=== PATIENT | female | born 1960 | race Caucasian/White ===

== ENCOUNTER 2018-03-27 18:55 | Inpatient (IN) | payer OTHER ==
[2018-03-27] MEDS ORDERED: LEVOFLOXACIN 750MG-D5W PMX 750 MG in DEXTROSE/WATER 1 150ML.BAG IVPB STA (19:34)
[2018-03-27] MEDS ORDERED: IPRATROPIUM-ALBUTEROL 3 ML NEB INHALATION STA (19:34)
[2018-03-27] MEDS ORDERED: ASPIRIN 81 MG PO STA (19:38)
--- NOTE | 2018-03-27 19:44 | ED ---
General Adult HPI - General Chief complaint: Upper Respiratory Infection Stated complaint: Cough Time Seen by Provider: 03/27/18 19:02 Source: patient, EMS, RN notes reviewed, old records reviewed (From [facility]) Mode of arrival: EMS Limitations: no limitations - History of Present Illness Initial comments: Patient is a pleasant 57-year-old female presenting to the emergency Department as a transfer from [facility]. Patient states she has had cough for the past several days. Patient states she has had some difficulty in breathing over the past couple of days. Cough has some yellow sputum. Patient has had some nausea. Patient denies ever having abdominal discomfort. Patient denies ever having chest discomfort. Patient states she has been fatigued. Patient is unaware of any fevers recently. Patient was started on heparin prior to transfer. Patient was transferred for level of care and cardiac evaluation. Patient did have elevated troponin. D-dimer was done at 0.43. - Related Data Home Medications Medication Instructions Recorded Confirmed Ascorbic Acid [Vitamin C] 1,000 mg PO DAILY 03/27/18 03/27/18 Calcium/Magnesium/Zinc 1 tab PO DAILY 03/27/18 03/27/18 [Bhwxdsi-Lvtnopbtz-Cjil Tablet] Cyanocobalamin (Vitamin B-12) 1,000 mcg PO DAILY 03/27/18 03/27/18 [Vitamin B-12] Hydrochlorothiazide [Hydrodiuril] 25 mg PO DAILY 03/27/18 03/27/18 Multivitamins, Thera [Multivitamin 1 tab PO DAILY 03/27/18 03/27/18 (formulary)] Otc Hot Flash Tab(Unknown) 1 tab PO DAILY 03/27/18 03/27/18 Ranitidine HCl [Zantac] 75 mg PO AC-BID 03/27/18 03/27/18 Vitamin B Complex 1 cap PO DAILY 03/27/18 03/27/18 Allergies Allergy/AdvReac Type Severity Reaction Status Date / Time No Known Allergies Allergy Verified 03/27/18 19:41 Review of Systems ROS Statement: Those systems with pertinent positive or pertinent negative responses have been documented in the HPI. ROS Other: All systems not noted in ROS Statement are negative. Constitutional: Reports: chills. Denies: fever Eyes: Denies: eye pain ENT: Denies: ear pain Respiratory: Reports: cough, dyspnea Cardiovascular: Denies: chest pain Endocrine: Reports: fatigue Gastrointestinal: Reports: nausea. Denies: abdominal pain, vomiting, diarrhea, constipation Genitourinary: Denies: dysuria Musculoskeletal: Denies: back pain Skin: Denies: rash Neurological: Denies: headache Past Medical History Past Medical History: Hypertension History of Any Multi-Drug Resistant Organisms: None Reported Past Surgical History: Tonsillectomy, Tubal Ligation Past Psychological History: No Psychological Hx Reported Smoking Status: Current every day smoker Past Alcohol Use History: None Reported Past Drug Use History: None Reported General Exam Limitations: no limitations General appearance: alert, in no apparent distress Head exam: Present: atraumatic Eye exam: Present: normal appearance, PERRL ENT exam: Present: normal oropharynx Neck exam: Present: normal inspection Respiratory exam: Present: wheezes, decreased breath sounds Cardiovascular Exam: Present: regular rate, normal rhythm Expanded Peripheral pulses: 2+: Radial (R), Radial (L), Dorsalis Pedis (R), Dorsalis Pedis (L) GI/Abdominal exam: Present: soft. Absent: tenderness Extremities exam: Present: normal inspection. Absent: pedal edema, calf tenderness Neurological exam: Present: alert Psychiatric exam: Present: normal affect, normal mood Skin exam: Present: normal color Course Vital Signs 03/27/18 03/27/18 03/27/18 19:01 20:01 20:14 Temperature 100.1 F H Pulse Rate 93 81 92 Respiratory 18 18 Rate Blood Pressure 150/103 154/100 O2 Sat by Pulse 91 L 95 Oximetry 03/27/18 03/27/18 20:30 20:57 Temperature 99.4 F Pulse Rate 90 101 H Respiratory 18 Rate Blood Pressure 140/96 O2 Sat by Pulse 91 L Oximetry - Reevaluation(s) Reevaluation #1: 03/27/18 19:42 Patient does have concern for sepsis diagnosed at 1942. Blood culture and lactic acid and IV antibiotics have already been ordered. EKG Findings - EKG Comments: EKG Findings:: Normal sinus rhythm 86. VT 134. QRS 74. QT 366. QTc 437. Normal axis. Inferior T wave inversion. Septal Q waves. Medical Decision Making - Medical Decision Making Patient and family were updated on results and plan. Case was discussed with practitioner Salena, covering for Dr. Jimenez, who will admit for hospital call. - Lab Data Result diagrams: 03/27/18 20:02 03/27/18 20:02 Disposition Clinical Impression: COPD with acute exacerbation, Sepsis, Elevated troponin Disposition: ADMITTED IP TO THIS HOSP Condition: Serious Is patient prescribed a controlled substance at d/c from ED?: No
[2018-03-27] MEDS ORDERED: IPRATROPIUM-ALBUTEROL 3 ML NEB INHALATION PRN (19:47)
[2018-03-27] MEDS ORDERED: NITROGLYCERIN SL TABS 0.4 MG TAB SUBLINGUAL PRN (19:50)
--- NOTE | 2018-03-27 19:57 | XR ---
EXAMINATION TYPE: XR chest 2V DATE OF EXAM: 03/27/2018 COMPARISON: Today HISTORY: Cough TECHNIQUE: Frontal and lateral views of the chest are obtained. FINDINGS: There is no heart failure nor confluent pneumonic infiltrate. Costophrenic angles are radames r. There are chest leads. There is slight coarsening of interstitial markings. IMPRESSION: Mild interstitial fibrotic changes. No heart failure. No change compared to last exam.
[2018-03-27 20:43] LABS: Basophils # (A) 0.1 k/uL (0-0.2); Basophils % (A) 0 %; Eosinophils # (A) 0.1 k/uL (0-0.7); Eosinophils % (A) 1 %; HCT 43.4 % (34.0-46.0); HGB 13.5 gm/dL (11.4-16.0); Lymphocytes # (A) 0.7 k/uL (1.0-4.8); Lymphocytes % (A) 6 %; MCH 31.5 pg (25.0-35.0); MCHC 31.1 g/dL (31.0-37.0); MCV 101.2 fL (80.0-100.0); Macrocytosis Slight; Mean Platelet Volume 7.8; Monocytes # (A) 0.4 k/uL (0-1.0); Monocytes % (A) 3 %; Neutrophils # (A) 11.3 k/uL (1.3-7.7); Neutrophils % (A) 89 %; Platelet Count 229 k/uL (150-450); RBC 4.29 m/uL (3.80-5.40); RDW 13.8 % (11.5-15.5); WBC 12.6 k/uL (3.8-10.6)
[2018-03-27 20:53] LABS: INR 0.9 (<1.2); Partial Thromboplastin Time 26.5 sec (22.0-30.0); Prothrombin Time 9.9 sec (9.0-12.0)
[2018-03-27 20:55] LABS: ALT 82 U/L (9-52); AST 67 U/L (14-36); Albumin 3.9 g/dL (3.5-5.0); Alkaline Phosphatase 113 U/L (38-126); Anion Gap 7 mmol/L; Blood Urea Nitrogen 17 mg/dL (7-17); Calcium 9.1 mg/dL (8.4-10.2); Carbon Dioxide 39 mmol/L (22-30); Chloride 91 mmol/L (98-107); Glucose 167 mg/dL (74-99); Potassium 3.8 mmol/L (3.5-5.1); Sodium 137 mmol/L (137-145); Total Bilirubin 0.5 mg/dL (0.2-1.3); Total Protein 7.1 g/dL (6.3-8.2)
[2018-03-27] MEDS: HEPARIN SOD,PORK IN 0.45% NACL 25,000 UNIT in 0.45% NACL 1 250ML.BAG IV SCH (20:56)
[2018-03-27] MEDS: SODIUM CHLORIDE 0.9% 1,000 ML IV SCH (20:56)
[2018-03-27 21:05] LABS: Creatine Kinase MB 1.6 ng/mL (0.0-2.4)
[2018-03-27 21:08] LABS: Troponin I 0.118 ng/mL (0.000-0.034)
[2018-03-27 21:54] VITALS: BMI 30.9
[2018-03-27] MEDS: methylPREDNISolone SOD SUCCI 125 MG/2 ML VIAL IV SCH (23:26)
[2018-03-28] MEDS: HEPARIN SODIUM,PORCINE 5,000 UNIT/ML 1 ML VIAL IV PRN ×2 (03:11→22:32)
[2018-03-28 03:15] LABS: Creatine Kinase MB 1.6 ng/mL (0.0-2.4)
[2018-03-28 03:27] LABS: Troponin I 0.067 ng/mL (0.000-0.034)
[2018-03-28] MEDS: methylPREDNISolone SOD SUCCI 125 MG/2 ML VIAL IV SCH ×3 (06:22→23:06)
[2018-03-28] MEDS: INSULIN ASPART 100 UNIT/ML 1 ML 10 ML VIAL SQ SCH ×4 (06:24→22:13)
[2018-03-28] MEDS: SODIUM CHLORIDE 0.9% 1,000 ML IV SCH ×2 (06:25→22:06)
[2018-03-28 06:27] LABS: Glucose,Whole Blood 172 mg/dL (75-99)
[2018-03-28] MEDS: ASPIRIN 325 MG TAB PO SCH (08:38)
[2018-03-28] MEDS: IPRATROPIUM-ALBUTEROL 3 ML NEB INHALATION SCH ×4 (09:44→22:52)
[2018-03-28 09:49] LABS: INR 0.9 (<1.2); Partial Thromboplastin Time 35.2 sec (22.0-30.0); Prothrombin Time 10.1 sec (9.0-12.0)
[2018-03-28 09:52] LABS: Basophils # (A) 0.1 k/uL (0-0.2); Basophils % (A) 0 %; Eosinophils % (A) 0 %; HCT 40.5 % (34.0-46.0); HGB 12.6 gm/dL (11.4-16.0); Hypochromasia Slight; Lymphocytes # (A) 0.8 k/uL (1.0-4.8); Lymphocytes % (A) 6 %; MCV 103.4 fL (80.0-100.0); Macrocytosis Slight; Mean Platelet Volume 7.6; Monocytes # (A) 0.5 k/uL (0-1.0); Monocytes % (A) 4 %; Neutrophils # (A) 11.9 k/uL (1.3-7.7); Neutrophils % (A) 88 %; Platelet Count 256 k/uL (150-450); RBC 3.92 m/uL (3.80-5.40); RDW 13.9 % (11.5-15.5); WBC 13.6 k/uL (3.8-10.6)
[2018-03-28 09:55] LABS: Blood Urea Nitrogen 20 mg/dL (7-17); Calcium 8.5 mg/dL (8.4-10.2); Chloride 96 mmol/L (98-107); Cholesterol 135 mg/dL (<200); Glucose 157 mg/dL (74-99); HDL Cholesterol 36 mg/dL (40-60); LDL Cholesterol,Calculated 82 mg/dL (0-99); Potassium 4.2 mmol/L (3.5-5.1); Sodium 141 mmol/L (137-145); Triglycerides 85 mg/dL (<150)
--- NOTE | 2018-03-28 10:00 | CT ---
EXAMINATION TYPE: CT chest wo con DATE OF EXAM: 03/28/2018 COMPARISON: None. HISTORY: High resolution protocol. ILD, pulmonary fibrosis. CT DLP: 583.2 mGycm. Automated Exposure Control for Dose Reduction was Utilized. TECHNIQUE: CT scan of the thorax is performed without IV contrast. FINDINGS: There is some minimal interlobular septal thickening. There is no evidence of significant b ronchiectasis. No parenchymal consolidation is seen. There are some nonpathologic enlarged lymph node s in the mediastinum. There is some calcification of the mitral annulus. There is no pleural or peric ardial fluid. The heart is not enlarged. Visualized portions of the upper abdomen are unremarkable. There is hypertrophic spondylosis within the spine. IMPRESSION: MINIMAL INTERSTITIAL LUNG DISEASE.
[2018-03-28 10:01] LABS: Anion Gap 6 mmol/L
[2018-03-28 10:10] LABS: Carbon Dioxide 39 mmol/L (22-30)
[2018-03-28 11:02] LABS: Glucose,Whole Blood 168 mg/dL (75-99)
[2018-03-28 18:46] LABS: Glucose,Whole Blood 224 mg/dL (75-99)
--- NOTE | 2018-03-28 18:46 | CONS ---
CONSULTATION DATE OF SERVICE: March 28, 2018. REASON FOR THE CONSULTATION: Abnormal cardiac enzymes. HISTORY OF PRESENT ILLNESS: This is a pleasant 57-year-old female patient with a past medical history significant for hypertension, presented initially to the emergency room at [facility] complaining of chest discomfort. The patient overall is a poor historian. She states for the last several days, she has been not feeling well. She has been feeling tired, fatigued, has no energy. Beside that, she has been experiencing epigastric and left upper quadrant discomfort associated with the nausea. Beside that, she has been experiencing symptoms of chest discomfort. Because of that, the patient presented to the emergency room. I did review the paperwork from [facility], which did indicate abnormal troponin. Beside that, I did review the EKG, which showed sinus rhythm with T-wave inversion in the inferior leads. PAST MEDICAL HISTORY: Hypertension. PAST SURGICAL HISTORY: No major cardiovascular surgery. SOCIAL HISTORY: The patient does smoke and she is working on smoking cessation. FAMILY HISTORY: Family history is significant for mother with coronary artery disease and father with diabetes. PHYSICAL EXAMINATION: Unfortunately, the patient's vital signs are unavailable at this point because the computer system is down, but from [facility] her saturation was 92%, pulse was 92 beats per minute, respiration 22 beats per minute and temperature is 99.5 with a blood pressure of 132/95. Cardiovascular examination shows regular rate and rhythm. Respiratory examination shows clear breathing sounds bilaterally. DIAGNOSTIC WORKUP: The EKG is as described above. Sodium is 141, potassium 3.1, BUN is 14, creatinine is 0.6. GFR is 108. Troponin is 0.141. WBC is 13.8, hemoglobin 13.3, platelet count is 211. INR is 1.10. ASSESSMENT: 1. Chest discomfort associated with abnormal cardiac enzymes. 2. Hypertension. 3. Significant history of smoking. PLAN: 1. The patient was ruled in for acute coronary event. 2. I am concerned about severe underlying coronary artery disease. 3. I will keep the patient on aspirin as well as heparin for now. 4. Obtain an echocardiogram with Doppler. 5. Possible coronary angiogram. We will continue following up with the patient and thank you for allowing us to participate in her care. MMODL / IJN: [id number] /
--- NOTE | 2018-03-28 18:46 | ECHOF ---
Referral Reason:Cardiac evaluation MEASUREMENTS -------- HEIGHT: 157.5 cm WEIGHT: 79.4 kg BP: 123/83 RVIDd: 3.1 cm (< 3.3) IVSd: 1.1 cm (0.6 - 1.1) LVIDd: 3.8 cm (3.9 - 5.3) LVPWd: 1.1 cm (0.6 - 1.1) IVSs: 1.3 cm LVIDs: 2.4 cm LVPWs: 1.3 cm LAESV Index (A-L): 28.72 ml/m Ao Diam: 3.0 cm (2.0 - 3.7) AV Cusp: 1.4 cm (1.5 - 2.6) LA Diam: 3.2 cm (2.7 - 3.8) EPSS: 0.4 cm MV E Oseas: 1.22 m/s MV DecT: 235 ms MV A Oseas: 1.22 m/s MV E/A Ratio: 1.01 AV maxP.48 mmHg AV meanP.43 mmHg RAP: 5.00 mmHg RVSP: 28.92 mmHg MV EF SLOPE: 79.89 mm/s (70 - 150) MV EXCURSION: 1.41 cm (> 18.000) FINDINGS -------- Sinus rhythm. This was a technically adequate study. The left ventricular size is normal. There is borderline concentric left ventricular hypertrophy. Overall left ventricular systolic function is normal with, an EF between 55 - 60 %. The right ventricle is normal in size and function. LA is midly dilated 29-33ml/m2. The right atrium is normal in size. There is mild aortic valve sclerosis. Trace amount of aortic regurgitation. There is mild aortic stenosis present. Peak/mean gradient across the Aortic Valve is 20.48mmHg / 10.43mmHg. The mitral valve leaflets are mildly thickened. Mild mitral annular calcification present. There is trace to mild mitral regurgitation. Trace tricuspid regurgitation present. Right ventricular systolic pressure is normal at < 35 mmHg. There is no evidence of pulmonary hypertension. The pulmonic valve was not well visualized. The aortic root size is normal. Normal inferior vena cava with normal inspiratory collapse consistent with estimated right atrial pre ssure of 5 mmHg. There is no pericardial effusion. CONCLUSIONS -------- 1. Sinus rhythm. 2. This was a technically adequate study. 3. The left ventricular size is normal. 4. There is borderline concentric left ventricular hypertrophy. 5. Overall left ventricular systolic function is normal with, an EF between 55 - 60 %. 6. LA is midly dilated 29-33ml/m2. 7. There is mild aortic valve sclerosis. 8. Trace amount of aortic regurgitation. 9. There is mild aortic stenosis present. 10. Peak/mean gradient across the Aortic Valve is 20.48mmHg / 10.43mmHg. 11. The mitral valve leaflets are mildly thickened. 12. Mild mitral annular calcification present. 13. There is trace to mild mitral regurgitation. 14. Trace tricuspid regurgitation present. 15. Right ventricular systolic pressure is normal at < 35 mmHg. 16. There is no evidence of pulmonary hypertension. 17. The pulmonic valve was not well visualized. 18. The aortic root size is normal. 19. There is no pericardial effusion. KITCHEN CHEF: Bolivar Henson RDCS
[2018-03-28] MEDS ORDERED: LEVOFLOXACIN 750MG-D5W PMX 750 MG in DEXTROSE/WATER 1 150ML.BAG IVPB SCH (20:00)
[2018-03-28 21:21] LABS: Glucose,Whole Blood 185 mg/dL (75-99)
[2018-03-28] MEDS: HEPARIN SOD,PORK IN 0.45% NACL 25,000 UNIT in 0.45% NACL 1 250ML.BAG IV SCH (22:14)
[2018-03-29] MEDS: SODIUM CHLORIDE 0.9% 1,000 ML IV SCH ×3 (01:51→23:35)
[2018-03-29 05:02] LABS: Basophils % (A) 0 %; Eosinophils % (A) 0 %; HCT 39.7 % (34.0-46.0); HGB 12.1 gm/dL (11.4-16.0); Hypochromasia Slight; Lymphocytes # (A) 1.2 k/uL (1.0-4.8); Lymphocytes % (A) 8 %; MCH 31.7 pg (25.0-35.0); MCHC 30.4 g/dL (31.0-37.0); MCV 104.1 fL (80.0-100.0); Macrocytosis Slight; Mean Platelet Volume 7.4; Monocytes # (A) 0.7 k/uL (0-1.0); Monocytes % (A) 4 %; Neutrophils # (A) 13.5 k/uL (1.3-7.7); Neutrophils % (A) 86 %; Platelet Count 255 k/uL (150-450); RBC 3.82 m/uL (3.80-5.40); RDW 14.1 % (11.5-15.5); WBC 15.7 k/uL (3.8-10.6)
[2018-03-29 05:12] LABS: Partial Thromboplastin Time 71.5 sec (22.0-30.0); Prothrombin Time 10.4 sec (9.0-12.0)
[2018-03-29 06:01] LABS: Glucose,Whole Blood 185 mg/dL (75-99)
[2018-03-29 06:22] LABS: Anion Gap 6 mmol/L; Blood Urea Nitrogen 28 mg/dL (7-17); Calcium 8.4 mg/dL (8.4-10.2); Carbon Dioxide 37 mmol/L (22-30); Chloride 99 mmol/L (98-107); Glucose 173 mg/dL (74-99); Potassium 4.5 mmol/L (3.5-5.1); Sodium 142 mmol/L (137-145)
[2018-03-29] MEDS: methylPREDNISolone SOD SUCCI 125 MG/2 ML VIAL IV SCH (06:36)
[2018-03-29] MEDS: INSULIN ASPART 100 UNIT/ML 1 ML 10 ML VIAL SQ SCH ×4 (06:36→21:05)
[2018-03-29] MEDS: IPRATROPIUM-ALBUTEROL 3 ML NEB INHALATION SCH ×4 (07:27→18:56)
[2018-03-29] MEDS: ASPIRIN 325 MG TAB PO SCH (08:44)
--- NOTE | 2018-03-29 09:23 | P.HPIM ---
History of Present Illness H&P Date: 03/28/18 57-year-old female came in from [facility], [place], operated by [facility] with the progressive fatigue no fever shortness of breath cough with epigastric abdominal discomfort associated nausea. Patient had minimally elevated troponins because of which patient is admitted and cardiology was consulted. Patient had a CAT scan of the chest which showed minimal pulmonary fibrosis. Patient denied any fever chills nausea vomiting. Patient was started on steroids levofloxacin treating for interstitial pneumonia. Although there is no significant evidence of pneumonia. Patient is comparing of cough unable to bring up anything. Patient does have minimal wheezing on exam Review of Systems REVIEW OF SYSTEMS: CONSTITUTIONAL: As mentioned in HPI HEENT: No recent visual problems or hearing problems. Denied any sore throat. CARDIOVASCULAR: No orthopnea, PND, no palpitations, no syncope. PULMONARY: no hemoptysis. GASTROINTESTINAL: No diarrhea, no nausea, no vomiting, no abdominal pain. NEUROLOGICAL: No headaches, no weakness, no numbness. HEMATOLOGICAL: Denies any bleeding or petechiae. GENITOURINARY: Denies any burning micturition, frequency, or urgency. MUSCULOSKELETAL/RHEUMATOLOGICAL: Denies any joint pain, swelling, or any muscle pain. ENDOCRINE: Denies any polyuria or polydipsia. The rest of the 14-point review of systems is negative. Past Medical History Past Medical History: Hypertension History of Any Multi-Drug Resistant Organisms: None Reported Past Surgical History: Tonsillectomy, Tubal Ligation Past Anesthesia/Blood Transfusion Reactions: No Reported Reaction Smoking Status: Current every day smoker - Past Family History Father Family Medical History: Diabetes Mellitus Additional Family Medical History / Comment(s): enlarged heart Mother Family Medical History: Asthma Medications and Allergies Home Medications Medication Instructions Recorded Confirmed Type Ascorbic Acid [Vitamin C] 1,000 mg PO DAILY 03/27/18 03/27/18 History Calcium/Magnesium/Zinc 1 tab PO DAILY 03/27/18 03/27/18 History [Whtbhwo-Wibefnirm-Bpri Tablet] Cyanocobalamin (Vitamin B-12) 1,000 mcg PO DAILY 03/27/18 03/27/18 History [Vitamin B-12] Hydrochlorothiazide [Hydrodiuril] 25 mg PO DAILY 03/27/18 03/27/18 History Multivitamins, Thera [Multivitamin 1 tab PO DAILY 03/27/18 03/27/18 History (formulary)] Otc Hot Flash Tab(Unknown) 1 tab PO DAILY 03/27/18 03/27/18 History Ranitidine HCl [Zantac] 75 mg PO AC-BID 03/27/18 03/27/18 History Vitamin B Complex 1 cap PO DAILY 03/27/18 03/27/18 History Allergies Allergy/AdvReac Type Severity Reaction Status Date / Time No Known Allergies Allergy Verified 03/27/18 19:41 Physical Exam Vitals: Vital Signs Temp Pulse Pulse Resp BP Pulse Ox 03/29/18 07:42 97.5 F L 95 16 142/85 93 L 03/29/18 07:40 76 03/29/18 07:28 72 93 L 03/29/18 04:00 99.2 F 95 17 133/84 94 L 03/29/18 00:00 98.6 F 91 18 139/75 91 L 03/28/18 20:00 98.2 F 94 17 132/82 92 L 03/28/18 12:13 96 03/28/18 12:03 92 03/28/18 12:00 98.4 F 68 16 120/70 92 L Intake and Output 03/28/18 03/29/18 03/29/18 22:59 06:59 14:59 Intake Total 462.976 4441.25 Balance 724.763 1736.25 Intake: Intake, IV Titration 196.286 287.25 Amount Heparin Sod,Pork in 0.45% 196.286 137.25 NaCl 25,000 unit In 0.45 % NaCl 1 250ml.bag @ 12 UNITS/KG/HR 9.41 mls/hr IV .Q24H [facility] Rx#: [id number] Levofloxacin 750Mg-D5w 150 Pmx 750 mg In Dextrose/ Water 1 150ml.bag @ 100 mls/hr IVPB Q24H [facility] Rx#: [id number] Oral 640 800 Other: Voiding Method Toilet Toilet # Voids 1 2 Weight 80.5 kg PHYSICAL EXAMINATION: GENERAL: The patient is alert and oriented x3, not in any acute distress. Well developed, well nourished. HEENT: Pupils are round and equally reacting to light. EOMI. No scleral icterus. No conjunctival pallor. Normocephalic, atraumatic. No pharyngeal erythema. No thyromegaly. CARDIOVASCULAR: S1 and S2 present. No murmurs, rubs, or gallops. PULMONARY: Minimal wheezing on exam ABDOMEN: Soft, nontender, nondistended, normoactive bowel sounds. No palpable organomegaly. MUSCULOSKELETAL: No joint swelling or deformity. EXTREMITIES: No cyanosis, clubbing, or pedal edema. NEUROLOGICAL: Gross neurological examination did not reveal any focal deficits. SKIN: No rashes. Results CBC & Chem 7: 03/29/18 04:36 03/29/18 04:36 Labs: Abnormal Lab Results - Last 24 Hours (Table) 03/28/18 03/28/18 03/28/18 Range/Units 09:22 09:22 09:22 WBC 13.6 H (3.8-10.6) k/uL MCV 103.4 H (80.0-100.0) fL MCHC (31.0-37.0) g/dL Neutrophils # 11.9 H (1.3-7.7) k/uL Lymphocytes # 0.8 L (1.0-4.8) k/uL APTT 35.2 H (22.0-30.0) sec Chloride 96 L (98-107) mmol/L Carbon Dioxide 39 H (22-30) mmol/L BUN 20 H (7-17) mg/dL Glucose 157 H (74-99) mg/dL POC Glucose (mg/dL) (75-99) mg/dL Troponin I (0.000-0.034) ng/mL HDL Cholesterol 36 L (40-60) mg/dL 03/28/18 03/28/18 03/28/18 Range/Units 09:22 11:00 16:15 WBC (3.8-10.6) k/uL MCV (80.0-100.0) fL MCHC (31.0-37.0) g/dL Neutrophils # (1.3-7.7) k/uL Lymphocytes # (1.0-4.8) k/uL APTT (22.0-30.0) sec Chloride (98-107) mmol/L Carbon Dioxide (22-30) mmol/L BUN (7-17) mg/dL Glucose (74-99) mg/dL POC Glucose (mg/dL) 168 H 224 H (75-99) mg/dL Troponin I 0.043 H* (0.000-0.034) ng/mL HDL Cholesterol (40-60) mg/dL 03/28/18 03/29/18 03/29/18 Range/Units 21:20 04:36 04:36 WBC 15.7 H (3.8-10.6) k/uL MCV 104.1 H (80.0-100.0) fL MCHC 30.4 L (31.0-37.0) g/dL Neutrophils # 13.5 H (1.3-7.7) k/uL Lymphocytes # (1.0-4.8) k/uL APTT 71.5 H (22.0-30.0) sec Chloride (98-107) mmol/L Carbon Dioxide (22-30) mmol/L BUN (7-17) mg/dL Glucose (74-99) mg/dL POC Glucose (mg/dL) 185 H (75-99) mg/dL Troponin I (0.000-0.034) ng/mL HDL Cholesterol (40-60) mg/dL 03/29/18 03/29/18 Range/Units 04:36 05:59 WBC (3.8-10.6) k/uL MCV (80.0-100.0) fL MCHC (31.0-37.0) g/dL Neutrophils # (1.3-7.7) k/uL Lymphocytes # (1.0-4.8) k/uL APTT (22.0-30.0) sec Chloride (98-107) mmol/L Carbon Dioxide 37 H (22-30) mmol/L BUN 28 H (7-17) mg/dL Glucose 173 H (74-99) mg/dL POC Glucose (mg/dL) 185 H (75-99) mg/dL Troponin I (0.000-0.034) ng/mL HDL Cholesterol (40-60) mg/dL Microbiology - Last 24 Hours (Table) 03/27/18 20:02 Blood Culture - Preliminary Blood No Growth after 24 hours Thrombosis Risk Factor Assmnt - Choose All That Apply Each Factor Represents 1 point: Age 41-60 years Other Risk Factors: No Thrombosis Risk Factor Assessment Total Risk Factor Score: 1 Thrombosis Risk Factor Assessment Level: Low Risk Assessment and Plan Plan: -Shortness of breath and acute hypoxic respiratory failure Probably secondary to COPD exacerbation patient continues steroids inhalational treatments and the levofloxacin -Possible probably fibrosis low probability of interstitial pneumonia levofloxacin will be continued until pulmonology evaluated the patient - minimally elevated troponin secondary to hypoxia -Epigastric abdominal discomfort probably due to peptic ulcer disease or gastritis: Patient was started on Protonix
[2018-03-29] MEDS: PANTOPRAZOLE 40 MG/10 ML VIAL IVP SCH (10:51)
[2018-03-29 11:20] LABS: Glucose,Whole Blood 155 mg/dL (75-99)
--- NOTE | 2018-03-29 11:41 | P.CNPUL ---
History of Present Illness Consult date: 03/29/18 Requesting physician: Kyle Jimenez Chief complaint: Epigastric discomfort, acute hypoxemic respiratory failure, cough History of present illness: This a 57-year-old white female patient that follows with Dr. Julian, [facility]/ Dr. Hemphill, presents to the emergency department as a transfer from [facility] with complaints of epigastric discomfort, nausea, fatigue. Patient is somewhat of a poor historian. Past medical history is significant for hypertension, current every day smoker, patient has smoked on and off a pack a day for 40 years. Patient denied any fever or chills, denied any chest pain, denied any lightheadedness or dizziness, headaches, no vomiting, no diarrhea. She denies any history of chronic lung disease until now, eyes any prior history of MIs, diabetes mellitus. Chest x-ray showed mild interstitial fibrotic changes, no heart failure. At the [facility] her troponins were noted to be elevated. EKG showed sinus rhythm with T-wave inversion in the inferior leads. Chest CT was obtained, and showed no evidence of parenchymal consolidation, there were some nonpathologic enlarged lymph nodes in the mediastinum, some calcification of the mitral annulus, no pleural or pericardial fluid, no cardiomegaly, showed minimal interstitial lung disease. Echocardiogram showed left ventricular systolic function with EF of 55-60%, mild aortic valve sclerosis with trace aortic regurg, mild aortic stenosis. There was trace MR and trace TR right ventricular systolic pressure was less than 35 mmHg. initial labs showed a white count of 12.6, hemoglobin of 13.5, sodium was 137, potassium is 3.8, chloride was 91, CO2 is 39, BUN was 17 and creatinine was 0.57. Troponins were 0.118, 0.067, 0.043. Cardiology is following and is considering cardiac catheterization. ProBNP was elevated at 3730. She is requiring supplemental oxygen, she is on 4 L per nasal cannula and her pulse ox is 91-93%. Lung sounds are quite diminished and there are end expiratory wheezes. Review of Systems All systems: negative Constitutional: Denies chills, Denies fever Eyes: denies blurred vision, denies pain Ears, nose, mouth and throat: Denies headache, Denies sore throat Cardiovascular: Reports chest pain, Reports decreased exercise tolerance, Denies shortness of breath Respiratory: Reports dyspnea, Reports respiratory infections, Reports wheezing, Denies cough Gastrointestinal: Denies abdominal pain, Denies diarrhea, Denies nausea, Denies vomiting Genitourinary: Denies dysuria, Denies hematuria Musculoskeletal: Denies myalgias Integumentary: Denies pruritus, Denies rash Neurological: Denies numbness, Denies weakness Psychiatric: Denies anxiety, Denies depression Endocrine: Denies fatigue, Denies weight change Past Medical History Past Medical History: Hypertension History of Any Multi-Drug Resistant Organisms: None Reported Past Surgical History: Tonsillectomy, Tubal Ligation Past Anesthesia/Blood Transfusion Reactions: No Reported Reaction Smoking Status: Current every day smoker - Past Family History Father Family Medical History: Diabetes Mellitus Additional Family Medical History / Comment(s): enlarged heart Mother Family Medical History: Asthma Medications and Allergies Home Medications Medication Instructions Recorded Confirmed Type Ascorbic Acid [Vitamin C] 1,000 mg PO DAILY 03/27/18 03/27/18 History Calcium/Magnesium/Zinc 1 tab PO DAILY 03/27/18 03/27/18 History [Wkliefj-Kntiszqzo-Kqvz Tablet] Cyanocobalamin (Vitamin B-12) 1,000 mcg PO DAILY 03/27/18 03/27/18 History [Vitamin B-12] Hydrochlorothiazide [Hydrodiuril] 25 mg PO DAILY 03/27/18 03/27/18 History Multivitamins, Thera [Multivitamin 1 tab PO DAILY 03/27/18 03/27/18 History (formulary)] Otc Hot Flash Tab(Unknown) 1 tab PO DAILY 03/27/18 03/27/18 History Ranitidine HCl [Zantac] 75 mg PO AC-BID 03/27/18 03/27/18 History Vitamin B Complex 1 cap PO DAILY 03/27/18 03/27/18 History Allergies Allergy/AdvReac Type Severity Reaction Status Date / Time No Known Allergies Allergy Verified 03/27/18 19:41 Physical Exam Vitals: Vital Signs Temp Pulse Pulse Resp BP Pulse Ox 03/29/18 11:16 92 03/29/18 11:05 88 03/29/18 07:42 97.5 F L 95 16 142/85 93 L 03/29/18 07:40 76 03/29/18 07:28 72 93 L 03/29/18 04:00 99.2 F 95 17 133/84 94 L 03/29/18 00:00 98.6 F 91 18 139/75 91 L 03/28/18 20:00 98.2 F 94 17 132/82 92 L 03/28/18 12:13 96 03/28/18 12:03 92 03/28/18 12:00 98.4 F 68 16 120/70 92 L Intake and Output 03/28/18 03/29/18 03/29/18 22:59 06:59 14:59 Intake Total 567.427 0164.25 Balance 802.546 9143.25 Intake: Intake, IV Titration 196.286 287.25 Amount Heparin Sod,Pork in 0.45% 196.286 137.25 NaCl 25,000 unit In 0.45 % NaCl 1 250ml.bag @ 12 UNITS/KG/HR 9.41 mls/hr IV .Q24H [facility] Rx#: [id number] Levofloxacin 750Mg-D5w 150 Pmx 750 mg In Dextrose/ Water 1 150ml.bag @ 100 mls/hr IVPB Q24H [facility] Rx#: [id number] Oral 640 800 Other: Voiding Method Toilet Toilet # Voids 1 2 Weight 80.5 kg GENERAL EXAM: Alert, pleasant, 57-year-old white female on 4 L per nasal cannula comfortable in no apparent distress. HEAD: Normocephalic/atraumatic. EYES: Normal reaction of pupils, equal size. Conjunctiva pink, sclera white. NOSE: Clear with pink turbinates. THROAT: No erythema or exudates. NECK: No masses, no JVD, no thyroid enlargement, no adenopathy. CHEST: No chest wall deformity. Symmetrical expansion. LUNGS: Equal air entry with management sounds bilaterally, and wheezes on forced exhale maneuver and prolongation of expiratory phase CVS: Regular rate and rhythm, normal S1 and S2, no gallops, no murmurs, no rubs ABDOMEN: Soft, nontender. No hepatosplenomegaly, normal bowel sounds, no guarding or rigidity. EXTREMITIES: No clubbing, no edema, no cyanosis, 2+ pulses and upper and lower extremities. MUSCULOSKELETAL: Muscle strength and tone normal. SPINE: No scoliosis or deformity SKIN: No rashes CENTRAL NERVOUS SYSTEM: Alert and oriented -3. No focal deficits, tone is normal in all 4 extremities. PSYCHIATRIC: Alert and oriented -3. Appropriate affect. Intact judgment and insight. Results - Laboratory Findings CBC and BMP: 03/29/18 04:36 03/29/18 04:36 PT/INR, D-dimer PT 10.4 sec (9.0-12.0) 03/29/18 04:36 INR 1.0 (<1.2) 03/29/18 04:36 Abnormal lab findings: Abnormal Labs 03/27/18 03/27/18 03/27/18 20:02 20:02 20:02 WBC 12.6 H MCV 101.2 H MCHC Neutrophils # 11.3 H Lymphocytes # 0.7 L APTT Chloride 91 L Carbon Dioxide 39 H BUN Glucose 167 H POC Glucose (mg/dL) AST 67 H ALT 82 H Troponin I 0.118 H* HDL Cholesterol 03/28/18 03/28/18 03/28/18 02:19 06:18 09:22 WBC 13.6 H MCV 103.4 H MCHC Neutrophils # 11.9 H Lymphocytes # 0.8 L APTT Chloride Carbon Dioxide BUN Glucose POC Glucose (mg/dL) 172 H AST ALT Troponin I 0.067 H* HDL Cholesterol 03/28/18 03/28/18 03/28/18 09:22 09:22 09:22 WBC MCV MCHC Neutrophils # Lymphocytes # APTT 35.2 H Chloride 96 L Carbon Dioxide 39 H BUN 20 H Glucose 157 H POC Glucose (mg/dL) AST ALT Troponin I 0.043 H* HDL Cholesterol 36 L 03/28/18 03/28/18 03/28/18 11:00 16:15 21:20 WBC MCV MCHC Neutrophils # Lymphocytes # APTT Chloride Carbon Dioxide BUN Glucose POC Glucose (mg/dL) 168 H 224 H 185 H AST ALT Troponin I HDL Cholesterol 03/29/18 03/29/18 03/29/18 04:36 04:36 04:36 WBC 15.7 H MCV 104.1 H MCHC 30.4 L Neutrophils # 13.5 H Lymphocytes # APTT 71.5 H Chloride Carbon Dioxide 37 H BUN 28 H Glucose 173 H POC Glucose (mg/dL) AST ALT Troponin I HDL Cholesterol 03/29/18 03/29/18 05:59 11:18 WBC MCV MCHC Neutrophils # Lymphocytes # APTT Chloride Carbon Dioxide BUN Glucose POC Glucose (mg/dL) 185 H 155 H AST ALT Troponin I HDL Cholesterol - Diagnostic Findings Chest x-ray: report reviewed, image reviewed CT scan - chest: report reviewed, image reviewed Additional studies: EKG reviewed Assessment and Plan Plan: Assessment: #1. Acute hypoxemic respiratory failure related to acute exacerbation of chronic obstructive pulmonary disease #2. Non-ST elevated myocardial infarction #3. Minimal interstitial lung disease seen on the CT chest and chest x-ray, no acute cardiopulmonary process #4. Suspect advanced COPD with chronic hypercapnic respiratory failure #5. Nicotine dependence, chronic and ongoing, patient carries a [id number] smoking history #6. Hypertension #7. Leukocytosis, could be related to steroids Plan: Continue with IV steroids, nebulized bronchodilators, and empiric antibiotics, will add Pulmicort and Perforomist. X-ray and CT chest were reviewed with Dr. Guzmán, showed minimal interstitial lung disease without acute cardiopulmonary process. Smoking cessation education was done. Patient is undergoing evaluation by cardiology, the concern about underlying coronary artery disease. Echocardiogram results have been noted. We'll continue to follow I performed a history & physical examination of the patient and discussed their management with my nurse practitioner, Elsa Elias. I reviewed the nurse practitioner's note and agree with the documented findings and plan of care. Lung sounds are positive for diffuse wheezes throughout the lung cummings. The findings and the impression was discussed with the patient. I attest to the documentation by the nurse practitioner. Time with Patient: Greater than 30
--- NOTE | 2018-03-29 12:04 | P.PN ---
Subjective Progress Note Date: 03/29/18 Principal diagnosis: Elevated cardiac enzymes This is a pleasant 57-year-old female patient with a past medical history significant for hypertension as well as significant history of smoking who was transferred from [facility] for further evaluation of shortness of breath as well as abnormal cardiac enzymes. The patient was seen by the pulmonary team and she was diagnosed with COPD exacerbation. The cardiac enzymes are mildly elevated and below 1. No significant ST or T- wave abnormalities noted. The echo showed normal LV function without any significant valvular abnormalities. On follow-up with the patient today, she denies having any chest pain or chest discomfort and she stated that the shortness of breath has improved. She still have mild expiratory wheezing. I did discuss with the patient the need to rule out any severe underlying coronary artery disease for the abnormal cardiac enzymes by doing either a stress test or coronary angiogram but the patient expressed the wishes that she would like to be going home. Objective - Vital Signs Vital signs: Vital Signs Temp 98.0 F 03/29/18 11:10 Pulse 92 03/29/18 11:16 Resp 16 03/29/18 11:10 BP 124/83 03/29/18 11:10 Pulse Ox 94 L 03/29/18 11:10 Intake & Output 03/28/18 03/29/18 03/29/18 18:59 06:59 18:59 Intake Total 480 1683.536 Balance 480 1683.536 Weight 80.5 kg Intake: Intake, IV Titration 483.536 Amount Heparin Sod,Pork in 0.45% 333.536 NaCl 25,000 unit In 0.45 % NaCl 1 250ml.bag @ 12 UNITS/KG/HR 9.41 mls/hr IV .Q24H [facility] Rx#: [id number] Levofloxacin 750Mg-D5w 150 Pmx 750 mg In Dextrose/ Water 1 150ml.bag @ 100 mls/hr IVPB Q24H [facility] Rx#: [id number] Oral 480 1200 Other: Voiding Method Toilet # Voids 2 - Constitutional General appearance: Present: no acute distress - Respiratory Respiratory: bilateral: wheezing - Cardiovascular Rhythm: regular Heart sounds: normal: S1, S2 Abnormal Heart Sounds: Present: systolic murmur - Labs CBC & Chem 7: 03/29/18 04:36 03/29/18 04:36 Labs: Abnormal Lab Results - Last 24 Hours (Table) 03/28/18 03/28/18 03/29/18 Range/Units 16:15 21:20 04:36 WBC 15.7 H (3.8-10.6) k/uL MCV 104.1 H (80.0-100.0) fL MCHC 30.4 L (31.0-37.0) g/dL Neutrophils # 13.5 H (1.3-7.7) k/uL APTT (22.0-30.0) sec Carbon Dioxide (22-30) mmol/L BUN (7-17) mg/dL Glucose (74-99) mg/dL POC Glucose (mg/dL) 224 H 185 H (75-99) mg/dL 03/29/18 03/29/18 03/29/18 Range/Units 04:36 04:36 05:59 WBC (3.8-10.6) k/uL MCV (80.0-100.0) fL MCHC (31.0-37.0) g/dL Neutrophils # (1.3-7.7) k/uL APTT 71.5 H (22.0-30.0) sec Carbon Dioxide 37 H (22-30) mmol/L BUN 28 H (7-17) mg/dL Glucose 173 H (74-99) mg/dL POC Glucose (mg/dL) 185 H (75-99) mg/dL 03/29/18 Range/Units 11:18 WBC (3.8-10.6) k/uL MCV (80.0-100.0) fL MCHC (31.0-37.0) g/dL Neutrophils # (1.3-7.7) k/uL APTT (22.0-30.0) sec Carbon Dioxide (22-30) mmol/L BUN (7-17) mg/dL Glucose (74-99) mg/dL POC Glucose (mg/dL) 155 H (75-99) mg/dL Microbiology - Last 24 Hours (Table) 03/27/18 20:02 Blood Culture - Preliminary Blood No Growth after 24 hours Assessment and Plan Assessment: Assessment #1 mildly abnormal cardiac enzymes #2 COPD exacerbation #3 hypertension #4 significant history of smoking Plan #1 continue the patient on the aspirin #2 the echocardiogram reviewed and showed normal LV function with mild aortic stenosis #3 the abnormal cardiac enzymes could be related to hypoxemia and type II SC #4 severe coronary artery disease to be ruled out.
[2018-03-29] MEDS: DOXYCYCLINE 100 MG CAP PO SCH ×2 (13:11→19:39)
--- NOTE | 2018-03-29 13:30 | P.PN ---
Subjective patient is admitted for shortness of breath secondary to Celebrex cervical patient is on systemic steroids relational treatmentsTreatments minimally elevated troponin secondary to hypoxemia patient will undergo stress test once her transferred to status is stabilized. Patient does have minimal interstitial lung disease. Constitutional: Denied any fatigue denied any fever. Cardio vascular: denied any chest pain, palpitations Gastrointestinal denied any nausea vomiting Pulmonary: Denied any shortness of breath cough Neurologic denied any new focal deficits All inpatient medications were reviewed and appropriate changes in these medications as dictated in the interval history and assessment and plan. Objective - Vital Signs Vital signs: Vital Signs Temp 98.0 F 03/29/18 11:10 Pulse 92 03/29/18 11:16 Resp 16 03/29/18 11:10 BP 124/83 03/29/18 11:10 Pulse Ox 94 L 03/29/18 11:10 Intake & Output 03/28/18 03/29/18 03/29/18 18:59 06:59 18:59 Intake Total 480 1683.536 590 Balance 480 1683.536 590 Weight 80.5 kg Intake: Intake, IV Titration 483.536 350 Amount Heparin Sod,Pork in 0.45% 333.536 NaCl 25,000 unit In 0.45 % NaCl 1 250ml.bag @ 12 UNITS/KG/HR 9.41 mls/hr IV .Q24H [facility] Rx#: [id number] Levofloxacin 750Mg-D5w 150 Pmx 750 mg In Dextrose/ Water 1 150ml.bag @ 100 mls/hr IVPB Q24H [facility] Rx#: [id number] Sodium Chloride 0.9% 1, 350 000 ml @ 100 mls/hr IV . Q10H [facility] Rx#:[id number] Oral 480 1200 240 Other: Voiding Method Toilet # Voids 2 2 - Exam PHYSICAL EXAMINATION: GENERAL: The patient is alert and oriented x3, not in any acute distress. Well developed, well nourished. HEENT: Pupils are round and equally reacting to light. EOMI. No scleral icterus. No conjunctival pallor. Normocephalic, atraumatic. No pharyngeal erythema. No thyromegaly. CARDIOVASCULAR: S1 and S2 present. No murmurs, rubs, or gallops. PULMONARY: bilateral expiratory wheezing on exam ABDOMEN: Soft, nontender, nondistended, normoactive bowel sounds. No palpable organomegaly. MUSCULOSKELETAL: No joint swelling or deformity. EXTREMITIES: No cyanosis, clubbing, or pedal edema. NEUROLOGICAL: Gross neurological examination did not reveal any focal deficits. SKIN: No rashes. - Labs CBC & Chem 7: 03/29/18 04:36 03/29/18 04:36 Labs: Abnormal Lab Results - Last 24 Hours (Table) 03/28/18 03/28/18 03/29/18 Range/Units 16:15 21:20 04:36 WBC 15.7 H (3.8-10.6) k/uL MCV 104.1 H (80.0-100.0) fL MCHC 30.4 L (31.0-37.0) g/dL Neutrophils # 13.5 H (1.3-7.7) k/uL APTT (22.0-30.0) sec Carbon Dioxide (22-30) mmol/L BUN (7-17) mg/dL Glucose (74-99) mg/dL POC Glucose (mg/dL) 224 H 185 H (75-99) mg/dL 03/29/18 03/29/18 03/29/18 Range/Units 04:36 04:36 05:59 WBC (3.8-10.6) k/uL MCV (80.0-100.0) fL MCHC (31.0-37.0) g/dL Neutrophils # (1.3-7.7) k/uL APTT 71.5 H (22.0-30.0) sec Carbon Dioxide 37 H (22-30) mmol/L BUN 28 H (7-17) mg/dL Glucose 173 H (74-99) mg/dL POC Glucose (mg/dL) 185 H (75-99) mg/dL 03/29/18 Range/Units 11:18 WBC (3.8-10.6) k/uL MCV (80.0-100.0) fL MCHC (31.0-37.0) g/dL Neutrophils # (1.3-7.7) k/uL APTT (22.0-30.0) sec Carbon Dioxide (22-30) mmol/L BUN (7-17) mg/dL Glucose (74-99) mg/dL POC Glucose (mg/dL) 155 H (75-99) mg/dL Microbiology - Last 24 Hours (Table) 03/27/18 20:02 Blood Culture - Preliminary Blood No Growth after 24 hours Assessment and Plan Plan: -acute hypercapnic respiratory failure secondary to severe exacerbation patient will continued on inhalational treatments systemic steroids patient was started on doxazosin levofloxacin will be discontinued -Minimally elevated troponin secondary to hypoxemia patient will undergo stress test tomorrow before discharge -Possible probably fibrosis - minimally elevated troponin secondary to hypoxia -Epigastric abdominal discomfort probably due to peptic ulcer disease or gastritis: Patient was started on Protonix
[2018-03-29 16:32] LABS: Glucose,Whole Blood 131 mg/dL (75-99)
[2018-03-29] MEDS: HEPARIN SOD,PORK IN 0.45% NACL 25,000 UNIT in 0.45% NACL 1 250ML.BAG IV SCH (18:37)
[2018-03-29] MEDS: BUDESONIDE 1 MG/2 ML NEBU INHALATION SCH (18:57)
[2018-03-29] MEDS: FORMOTEROL FUMARATE 20 MCG/2 ML NEBU INHALATION SCH (18:57)
[2018-03-29] MEDS: methylPREDNISolone SOD SUCCI 40 MG/ML 1 ML VIAL IV SCH (19:39)
[2018-03-29 20:38] LABS: Glucose,Whole Blood 155 mg/dL (75-99)
[2018-03-30] MEDS: HEPARIN SOD,PORK IN 0.45% NACL 25,000 UNIT in 0.45% NACL 1 250ML.BAG IV SCH (05:37)
[2018-03-30 05:52] LABS: Glucose,Whole Blood 133 mg/dL (75-99)
[2018-03-30] MEDS: INSULIN ASPART 100 UNIT/ML 1 ML 10 ML VIAL SQ SCH ×4 (06:01→20:54)
[2018-03-30 06:04] LABS: Basophils % (A) 0 %; Eosinophils % (A) 0 %; HCT 38.8 % (34.0-46.0); Hypochromasia Marked; Lymphocytes # (A) 1.3 k/uL (1.0-4.8); Lymphocytes % (A) 9 %; MCH 32.5 pg (25.0-35.0); MCHC 30.9 g/dL (31.0-37.0); MCV 105.5 fL (80.0-100.0); Macrocytosis Moderate; Mean Platelet Volume 7.9; Monocytes # (A) 0.9 k/uL (0-1.0); Monocytes % (A) 6 %; Neutrophils # (A) 12.5 k/uL (1.3-7.7); Neutrophils % (A) 83 %; Platelet Count 241 k/uL (150-450); RBC 3.68 m/uL (3.80-5.40); RDW 14.3 % (11.5-15.5); WBC 15.1 k/uL (3.8-10.6)
[2018-03-30 06:51] LABS: Prothrombin Time 10.6 sec (9.0-12.0)
[2018-03-30 07:18] LABS: Anion Gap 4 mmol/L; Blood Urea Nitrogen 27 mg/dL (7-17); Calcium 8.3 mg/dL (8.4-10.2); Carbon Dioxide 38 mmol/L (22-30); Chloride 102 mmol/L (98-107); Glucose 145 mg/dL (74-99); Potassium 4.6 mmol/L (3.5-5.1); Sodium 144 mmol/L (137-145)
[2018-03-30 07:40] LABS: Partial Thromboplastin Time 156.3 sec (22.0-30.0)
[2018-03-30] MEDS: FORMOTEROL FUMARATE 20 MCG/2 ML NEBU INHALATION SCH ×2 (07:49→20:17)
[2018-03-30] MEDS: IPRATROPIUM-ALBUTEROL 3 ML NEB INHALATION SCH ×4 (07:49→20:17)
[2018-03-30] MEDS: BUDESONIDE 1 MG/2 ML NEBU INHALATION SCH ×2 (07:49→20:17)
[2018-03-30] MEDS: methylPREDNISolone SOD SUCCI 40 MG/ML 1 ML VIAL IV SCH ×2 (08:35→20:14)
[2018-03-30] MEDS: PANTOPRAZOLE 40 MG/10 ML VIAL IVP SCH (08:35)
[2018-03-30] MEDS: DOXYCYCLINE 100 MG CAP PO SCH ×2 (08:35→20:14)
[2018-03-30] MEDS: ASPIRIN 325 MG TAB PO SCH (08:35)
[2018-03-30] MEDS: SODIUM CHLORIDE 0.9% 1,000 ML IV SCH ×2 (08:35→17:40)
[2018-03-30] MEDS ORDERED: ACETAMINOPHEN TAB 325 MG TAB PO PRN (09:56)
[2018-03-30 11:42] LABS: Glucose,Whole Blood 142 mg/dL (75-99)
[2018-03-30] MEDS ORDERED: SODIUM CHLORIDE 0.9% 1,000 ML in EMPTY BAG 1 BAG IV ONE (12:06)
[2018-03-30] MEDS ORDERED: ALPRAZolam 0.5 MG TAB PO PRN (12:06)
[2018-03-30] MEDS ORDERED: NITROGLYCERIN SL TABS 0.4 MG TAB SUBLINGUAL PRN (12:06)
[2018-03-30] MEDS ORDERED: ASPIRIN 325 MG TAB PO STA (12:06)
[2018-03-30] MEDS ORDERED: ALPRAZolam 0.25 MG TAB PO PRN (12:06)
[2018-03-30] MEDS ORDERED: ATORVASTATIN 80 MG TAB PO STA (12:06)
--- NOTE | 2018-03-30 12:43 | P.PN ---
Subjective Progress Note Date: 03/30/18 This is a 57-year-old female with past medical history significant for hypertension, history of smoking, who was initially transferred here from [facility] for further evaluation secondary to shortness of breath and abnormal cardiac enzymes. Patient was seen and evaluated by pulmonary and diagnosed with COPD exacerbation. Echo cardiac gram with Doppler study was performed which revealed a normal left ventricular systolic function without any significant valvular abnormalities. Patient was seen and examined this morning, she does state that she feels her breathing is improved overall. Denies any chest discomfort. Blood pressure 130/80 with a heart rate in the 60s to 80s, 94% on 3 L of oxygen. White blood cell count 15.1, hemoglobin 12.0, platelet count 241. Sodium 144, potassium 4.6, BUN 27 and creatinine 0.6. I did have a discussion with the patient this morning regarding proceeding with cardiac catheterization to rule out any significant obstructive coronary artery disease. The risks and the benefits were explained to the patient in detail, she is willing to have this done. This will be performed tomorrow by Dr. Baldwin. Objective - Vital Signs Vital signs: Vital Signs Temp 98.1 F 03/30/18 11:50 Pulse 86 03/30/18 12:09 Resp 16 03/30/18 11:50 BP 131/82 03/30/18 11:50 Pulse Ox 94 L 03/30/18 11:50 Intake & Output 03/29/18 03/30/18 03/30/18 18:59 06:59 18:59 Intake Total 525.565 8748.17 34.587 Balance 913.272 3236.17 34.587 Weight 82.1 kg Intake: Intake, IV Titration 459.063 731.17 34.587 Amount Heparin Sod,Pork in 0.45% 109.063 181.17 34.587 NaCl 25,000 unit In 0.45 % NaCl 1 250ml.bag @ 12 UNITS/KG/HR 9.41 mls/hr IV .Q24H [facility] Rx#: [id number] Sodium Chloride 0.9% 1, 350 550 000 ml @ 100 mls/hr IV . Q10H [facility] Rx#:[id number] Oral 480 900 Other: Voiding Method Toilet # Voids 2 1 - Exam PHYSICAL EXAMINATION: GENERAL: 57-year-old female in no acute distress at the time of my examination HEENT: Head is atraumatic, normocephalic. Pupils equal, round. Sclera anicteric. Conjunctiva are clear. Mucous membranes of the mouth are moist. Neck is supple. There is no elevated jugular venous pressure. No carotid bruit is heard. HEART EXAMINATION: Heart S1 and S2 1 systolic murmur is heard. CHEST EXAMINATION: Reveal decreased air exchange with scattered wheezing throughout. ABDOMEN: Soft, nontender. Bowel sounds are heard. No organomegaly noted. EXTREMITIES: 2+ peripheral pulses with no evidence of peripheral edema and no calf tenderness noted. NEUROLOGIC patient is awake, alert and oriented 3 . . - Labs CBC & Chem 7: 03/30/18 05:23 03/30/18 05:23 Labs: Abnormal Lab Results - Last 24 Hours (Table) 03/29/18 03/29/18 03/30/18 Range/Units 16:19 20:37 05:23 WBC 15.1 H (3.8-10.6) k/uL RBC 3.68 L (3.80-5.40) m/uL MCV 105.5 H (80.0-100.0) fL MCHC 30.9 L (31.0-37.0) g/dL Neutrophils # 12.5 H (1.3-7.7) k/uL APTT (22.0-30.0) sec Carbon Dioxide (22-30) mmol/L BUN (7-17) mg/dL Glucose (74-99) mg/dL POC Glucose (mg/dL) 131 H 155 H (75-99) mg/dL Calcium (8.4-10.2) mg/dL 03/30/18 03/30/18 03/30/18 Range/Units 05:23 05:23 05:50 WBC (3.8-10.6) k/uL RBC (3.80-5.40) m/uL MCV (80.0-100.0) fL MCHC (31.0-37.0) g/dL Neutrophils # (1.3-7.7) k/uL APTT 156.3 H* (22.0-30.0) sec Carbon Dioxide 38 H (22-30) mmol/L BUN 27 H (7-17) mg/dL Glucose 145 H (74-99) mg/dL POC Glucose (mg/dL) 133 H (75-99) mg/dL Calcium 8.3 L (8.4-10.2) mg/dL 03/30/18 Range/Units 11:17 WBC (3.8-10.6) k/uL RBC (3.80-5.40) m/uL MCV (80.0-100.0) fL MCHC (31.0-37.0) g/dL Neutrophils # (1.3-7.7) k/uL APTT (22.0-30.0) sec Carbon Dioxide (22-30) mmol/L BUN (7-17) mg/dL Glucose (74-99) mg/dL POC Glucose (mg/dL) 142 H (75-99) mg/dL Calcium (8.4-10.2) mg/dL Microbiology - Last 24 Hours (Table) 03/27/18 20:02 Blood Culture - Preliminary Blood No Growth after 48 hours Assessment and Plan Plan: Assessment and plan #1 shortness of breath with evidence of COPD exacerbation. #2 abnormality in cardiac enzymes, rule out underlying coronary artery disease #3 nicotine dependence #4 hypertension Plan Patient will undergo cardiac catheterization tomorrow, the risks and the benefits were explained to the patient in detail and she is willing to proceed. Further recommendations will be based on those findings and patient's clinical course. DNP note has been reviewed, I agree with a documented findings and plan of care. Patient was seen and examined.
--- NOTE | 2018-03-30 12:43 | P.PN ---
Subjective patient is admitted for shortness of breath secondary to COPD exacerbation and patient is on on systemic steroids relational treatmentsTreatments minimally elevated troponin secondary to hypoxemia patient will undergo stress test once her transferred to status is stabilized. Patient does have minimal interstitial lung disease. 03/30/2018 Patient desaturated to 70% upon ambulation and patient still has significant wheezing on exam and rhonchus breath sounds. Patient may need for day or 2. Further cardiac workup as per cardiology Constitutional: Denied any fatigue denied any fever. Cardio vascular: denied any chest pain, palpitations Gastrointestinal denied any nausea vomiting Pulmonary: As mentioned in HPI Neurologic denied any new focal deficits All inpatient medications were reviewed and appropriate changes in these medications as dictated in the interval history and assessment and plan. Objective - Vital Signs Vital signs: Vital Signs Temp 98.1 F 03/30/18 11:50 Pulse 86 03/30/18 12:09 Resp 16 03/30/18 11:50 BP 131/82 03/30/18 11:50 Pulse Ox 94 L 03/30/18 11:50 Intake & Output 03/29/18 03/30/18 03/30/18 18:59 06:59 18:59 Intake Total 367.622 6535.17 34.587 Balance 720.836 2837.17 34.587 Weight 82.1 kg Intake: Intake, IV Titration 459.063 731.17 34.587 Amount Heparin Sod,Pork in 0.45% 109.063 181.17 34.587 NaCl 25,000 unit In 0.45 % NaCl 1 250ml.bag @ 12 UNITS/KG/HR 9.41 mls/hr IV .Q24H [facility] Rx#: [id number] Sodium Chloride 0.9% 1, 350 550 000 ml @ 100 mls/hr IV . Q10H [facility] Rx#:[id number] Oral 480 900 Other: Voiding Method Toilet # Voids 2 1 - Exam PHYSICAL EXAMINATION: GENERAL: The patient is alert and oriented x3, not in any acute distress. Well developed, well nourished. HEENT: Pupils are round and equally reacting to light. EOMI. No scleral icterus. No conjunctival pallor. Normocephalic, atraumatic. No pharyngeal erythema. No thyromegaly. CARDIOVASCULAR: S1 and S2 present. No murmurs, rubs, or gallops. PULMONARY: bilateral expiratory wheezing on exam ABDOMEN: Soft, nontender, nondistended, normoactive bowel sounds. No palpable organomegaly. MUSCULOSKELETAL: No joint swelling or deformity. EXTREMITIES: No cyanosis, clubbing, or pedal edema. NEUROLOGICAL: Gross neurological examination did not reveal any focal deficits. SKIN: No rashes. - Labs CBC & Chem 7: 03/30/18 05:23 03/30/18 05:23 Labs: Abnormal Lab Results - Last 24 Hours (Table) 03/29/18 03/29/18 03/30/18 Range/Units 16:19 20:37 05:23 WBC 15.1 H (3.8-10.6) k/uL RBC 3.68 L (3.80-5.40) m/uL MCV 105.5 H (80.0-100.0) fL MCHC 30.9 L (31.0-37.0) g/dL Neutrophils # 12.5 H (1.3-7.7) k/uL APTT (22.0-30.0) sec Carbon Dioxide (22-30) mmol/L BUN (7-17) mg/dL Glucose (74-99) mg/dL POC Glucose (mg/dL) 131 H 155 H (75-99) mg/dL Calcium (8.4-10.2) mg/dL 03/30/18 03/30/18 03/30/18 Range/Units 05:23 05:23 05:50 WBC (3.8-10.6) k/uL RBC (3.80-5.40) m/uL MCV (80.0-100.0) fL MCHC (31.0-37.0) g/dL Neutrophils # (1.3-7.7) k/uL APTT 156.3 H* (22.0-30.0) sec Carbon Dioxide 38 H (22-30) mmol/L BUN 27 H (7-17) mg/dL Glucose 145 H (74-99) mg/dL POC Glucose (mg/dL) 133 H (75-99) mg/dL Calcium 8.3 L (8.4-10.2) mg/dL 03/30/18 Range/Units 11:17 WBC (3.8-10.6) k/uL RBC (3.80-5.40) m/uL MCV (80.0-100.0) fL MCHC (31.0-37.0) g/dL Neutrophils # (1.3-7.7) k/uL APTT (22.0-30.0) sec Carbon Dioxide (22-30) mmol/L BUN (7-17) mg/dL Glucose (74-99) mg/dL POC Glucose (mg/dL) 142 H (75-99) mg/dL Calcium (8.4-10.2) mg/dL Microbiology - Last 24 Hours (Table) 03/27/18 20:02 Blood Culture - Preliminary Blood No Growth after 48 hours Assessment and Plan Plan: -acute hypercapnic respiratory failure secondary to severe exacerbation patient will continued on inhalational treatments systemic steroids patient is on doxycycline -Minimally elevated troponin secondary to hypoxemia, further workup as per cardiology -Possible probably fibrosis - minimally elevated troponin secondary to hypoxia -Epigastric abdominal discomfort probably due to peptic ulcer disease or gastritis: Patient was started on Protonix
--- NOTE | 2018-03-30 15:12 | P.PN ---
Subjective Progress Note Date: 03/30/18 Principal diagnosis: Acute hypoxemic respiratory failure is related to acute exacerbation of chronic obstructive pulmonary disease This a 57-year-old white female patient that follows with Dr. Julian, [facility]/Dr. Hemphill, presents to the emergency department as a transfer from [facility] with complaints of epigastric discomfort, nausea, fatigue. Patient is somewhat of a poor historian. Past medical history is significant for hypertension, current every day smoker, patient has smoked on and off a pack a day for 40 years. Patient denied any fever or chills, denied any chest pain, denied any lightheadedness or dizziness, headaches, no vomiting, no diarrhea. She denies any history of chronic lung disease until now, eyes any prior history of MIs, diabetes mellitus. Chest x-ray showed mild interstitial fibrotic changes, no heart failure. At the [facility] her troponins were noted to be elevated. EKG showed sinus rhythm with T-wave inversion in the inferior leads. Chest CT was obtained, and showed no evidence of parenchymal consolidation, there were some nonpathologic enlarged lymph nodes in the mediastinum, some calcification of the mitral annulus, no pleural or pericardial fluid, no cardiomegaly, showed minimal interstitial lung disease. Echocardiogram showed left ventricular systolic function with EF of 55-60%, mild aortic valve sclerosis with trace aortic regurg, mild aortic stenosis. There was trace MR and trace TR right ventricular systolic pressure was less than 35 mmHg. initial labs showed a white count of 12.6, hemoglobin of 13.5, sodium was 137, potassium is 3.8, chloride was 91, CO2 is 39, BUN was 17 and creatinine was 0.57. Troponins were 0.118, 0.067, 0.043. Cardiology is following and is considering cardiac catheterization. ProBNP was elevated at 3730. She is requiring supplemental oxygen, she is on 4 L per nasal cannula and her pulse ox is 91-93%. Lung sounds are quite diminished and there are end expiratory wheezes. On 03/30/2018 patient seen in follow-up on selective care unit. She is resting comfortably in bed, in no acute distress, pulse ox on 3 L per nasal cannula with 94%, no fever or chills, today's examination reveals persistent wheezing, although slightly less prominent than yesterday's exam. No complaints of chest pain, no worsening dyspnea. These lab work has been reviewed, and showed a white count of 15.1, hemoglobin of 12.0, sodium of 144, potassium is 4.6, chloride is 102, CO2 is 38, BUN was 27 creatinine was 0.65. Blood culture showed no growth. Continue current medical treatment, and cardiology is scheduled the patient for heart catheterization tomorrow. Objective - Vital Signs Vital signs: Vital Signs Temp 98.1 F 03/30/18 11:50 Pulse 86 03/30/18 12:09 Resp 16 03/30/18 11:50 BP 131/82 03/30/18 11:50 Pulse Ox 94 L 03/30/18 11:50 Intake & Output 03/29/18 03/30/18 03/30/18 18:59 06:59 18:59 Intake Total 179.952 2026.17 974.587 Balance 872.381 1322.17 974.587 Weight 82.1 kg Intake: Intake, IV Titration 459.063 731.17 734.587 Amount Heparin Sod,Pork in 0.45% 109.063 181.17 34.587 NaCl 25,000 unit In 0.45 % NaCl 1 250ml.bag @ 12 UNITS/KG/HR 9.41 mls/hr IV .Q24H [facility] Rx#: [id number] Sodium Chloride 0.9% 1, 350 550 700 000 ml @ 100 mls/hr IV . Q10H [facility] Rx#:[id number] Oral 480 900 240 Other: Voiding Method Toilet # Voids 2 1 1 - Exam GENERAL EXAM: Alert, pleasant, 57-year-old white female on 4 L per nasal cannula comfortable in no apparent distress. HEAD: Normocephalic/atraumatic. EYES: Normal reaction of pupils, equal size. Conjunctiva pink, sclera white. NOSE: Clear with pink turbinates. THROAT: No erythema or exudates. NECK: No masses, no JVD, no thyroid enlargement, no adenopathy. CHEST: No chest wall deformity. Symmetrical expansion. LUNGS: Equal air entry with management sounds bilaterally, and wheezes on forced exhale maneuver and prolongation of expiratory phase CVS: Regular rate and rhythm, normal S1 and S2, no gallops, no murmurs, no rubs ABDOMEN: Soft, nontender. No hepatosplenomegaly, normal bowel sounds, no guarding or rigidity. EXTREMITIES: No clubbing, no edema, no cyanosis, 2+ pulses and upper and lower extremities. MUSCULOSKELETAL: Muscle strength and tone normal. SPINE: No scoliosis or deformity SKIN: No rashes CENTRAL NERVOUS SYSTEM: Alert and oriented -3. No focal deficits, tone is normal in all 4 extremities. PSYCHIATRIC: Alert and oriented -3. Appropriate affect. Intact judgment and insight. - Labs CBC & Chem 7: 03/30/18 05:23 03/30/18 05:23 Labs: Abnormal Lab Results - Last 24 Hours (Table) 03/29/18 03/29/18 03/30/18 Range/Units 16:19 20:37 05:23 WBC 15.1 H (3.8-10.6) k/uL RBC 3.68 L (3.80-5.40) m/uL MCV 105.5 H (80.0-100.0) fL MCHC 30.9 L (31.0-37.0) g/dL Neutrophils # 12.5 H (1.3-7.7) k/uL APTT (22.0-30.0) sec Carbon Dioxide (22-30) mmol/L BUN (7-17) mg/dL Glucose (74-99) mg/dL POC Glucose (mg/dL) 131 H 155 H (75-99) mg/dL Calcium (8.4-10.2) mg/dL 03/30/18 03/30/18 03/30/18 Range/Units 05:23 05:23 05:50 WBC (3.8-10.6) k/uL RBC (3.80-5.40) m/uL MCV (80.0-100.0) fL MCHC (31.0-37.0) g/dL Neutrophils # (1.3-7.7) k/uL APTT 156.3 H* (22.0-30.0) sec Carbon Dioxide 38 H (22-30) mmol/L BUN 27 H (7-17) mg/dL Glucose 145 H (74-99) mg/dL POC Glucose (mg/dL) 133 H (75-99) mg/dL Calcium 8.3 L (8.4-10.2) mg/dL 03/30/18 Range/Units 11:17 WBC (3.8-10.6) k/uL RBC (3.80-5.40) m/uL MCV (80.0-100.0) fL MCHC (31.0-37.0) g/dL Neutrophils # (1.3-7.7) k/uL APTT (22.0-30.0) sec Carbon Dioxide (22-30) mmol/L BUN (7-17) mg/dL Glucose (74-99) mg/dL POC Glucose (mg/dL) 142 H (75-99) mg/dL Calcium (8.4-10.2) mg/dL Microbiology - Last 24 Hours (Table) 03/27/18 20:02 Blood Culture - Preliminary Blood No Growth after 48 hours Assessment and Plan Plan: Assessment: #1. Acute hypoxemic respiratory failure related to acute exacerbation of chronic obstructive pulmonary disease #2. Non-ST elevated myocardial infarction #3. Minimal interstitial lung disease seen on the CT chest and chest x-ray, no acute cardiopulmonary process #4. Suspect advanced COPD with chronic hypercapnic respiratory failure #5. Nicotine dependence, chronic and ongoing, patient carries a [id number] smoking history #6. Hypertension #7. Leukocytosis, could be related to steroids Plan: Continue current medical treatment, current dose of IV steroids, empiric antibiotics, bronchodilators. Patient is scheduled for heart catheterization tomorrow, will continue to follow. I performed a history & physical examination of the patient and discussed their management with my nurse practitioner, Elsa Elias. I reviewed the nurse practitioner's note and agree with the documented findings and plan of care. Lung sounds are positive for diffuse wheezes throughout the lung cummings. The findings and the impression was discussed with the patient. I attest to the documentation by the nurse practitioner. Time with Patient: Less than 30
[2018-03-30 17:03] LABS: Glucose,Whole Blood 183 mg/dL (75-99)
[2018-03-30 20:51] LABS: Glucose,Whole Blood 105 mg/dL (75-99)
[2018-03-31 06:00] LABS: Glucose,Whole Blood 101 mg/dL (75-99)
[2018-03-31] MEDS: INSULIN ASPART 100 UNIT/ML 1 ML 10 ML VIAL SQ SCH ×2 (06:10→13:26)
[2018-03-31] MEDS: SODIUM CHLORIDE 0.9% 1,000 ML IV SCH ×2 (06:17→13:27)
[2018-03-31 06:33] LABS: INR 0.9 (<1.2); Prothrombin Time 9.8 sec (9.0-12.0)
[2018-03-31 06:42] LABS: Basophils # (A) 0.1 k/uL (0-0.2); Basophils % (A) 0 %; Eosinophils % (A) 0 %; HCT 39.9 % (34.0-46.0); HGB 12.7 gm/dL (11.4-16.0); Hypochromasia Moderate; Lymphocytes # (A) 1.7 k/uL (1.0-4.8); Lymphocytes % (A) 11 %; MCH 33.3 pg (25.0-35.0); MCHC 31.8 g/dL (31.0-37.0); MCV 104.7 fL (80.0-100.0); Macrocytosis Moderate; Monocytes # (A) 0.8 k/uL (0-1.0); Monocytes % (A) 5 %; Neutrophils # (A) 12.3 k/uL (1.3-7.7); Neutrophils % (A) 81 %; Platelet Count 262 k/uL (150-450); RBC 3.81 m/uL (3.80-5.40); RDW 14.4 % (11.5-15.5); WBC 15.2 k/uL (3.8-10.6)
[2018-03-31] MEDS ORDERED: ATORVASTATIN 80 MG TAB PO STA (07:53)
[2018-03-31] MEDS: ASPIRIN 325 MG TAB PO SCH (08:41)
[2018-03-31] MEDS: methylPREDNISolone SOD SUCCI 40 MG/ML 1 ML VIAL IV SCH (08:41)
[2018-03-31] MEDS: DOXYCYCLINE 100 MG CAP PO SCH (08:41)
[2018-03-31] MEDS ORDERED: PANTOPRAZOLE 40 MG TABLET PO SCH (09:00)
[2018-03-31] MEDS: IPRATROPIUM-ALBUTEROL 3 ML NEB INHALATION SCH ×3 (09:04→15:54)
[2018-03-31] MEDS: FORMOTEROL FUMARATE 20 MCG/2 ML NEBU INHALATION SCH (09:04)
[2018-03-31] MEDS: BUDESONIDE 1 MG/2 ML NEBU INHALATION SCH (09:04)
[2018-03-31 09:23] VITALS: PULSE 92
[2018-03-31] MEDS ORDERED: IV FLUID CONTINUATION 1,000 ML IV ONE (11:34)
[2018-03-31] MEDS ORDERED: MIDAZOLAM 2 MG/2 ML VIAL IV ONE (11:50)
[2018-03-31] MEDS ORDERED: LIDOCAINE 1% INJ 10MG/ML (20 ML MDV) SQ ONE (11:51)
[2018-03-31] MEDS: VERAPAMIL SYRINGE (5 MG/10 ML) INTRAARTER ONE ×2 (11:53→12:02)
[2018-03-31] MEDS ORDERED: HEPARIN SODIUM 1,000 UN/ML (10ML VL) IV ONE (12:01)
[2018-03-31] MEDS ORDERED: IOPAMIDOL-370 125ML BTL INJ ONE (12:04)
[2018-03-31] MEDS ORDERED: RX INFO: IV CONTRAST WAS GIVEN 1 EACH MISC MISCELLANE PRN (12:07)
[2018-03-31] MEDS ORDERED: SODIUM CHLORIDE 0.9% 1,000 ML IV SCH (12:15)
--- NOTE | 2018-03-31 12:30 | CC ---
CARDIAC CATHETERIZATION REPORT DATE OF SERVICE: 03/31/2018 PERFORMING PHYSICIAN: Eusebio Baldwin MD, [employer] Program Teacher. PROCEDURE PERFORMED: 1. Selective right and left coronary angiogram. 2. Left heart catheterization. INDICATION: This is a very pleasant 57-year-old female patient with history of hypertension and COPD, who was admitted to the hospital with chest discomfort and shortness of breath and ruled in for acute non ST elevation myocardial infarction. Because of that, a heart catheterization was advised. APPROACH: Right radial artery. COMPLICATION: None. LEVEL OF SEDATION: Moderate with sedation length of 14 minutes. PROCEDURE DESCRIPTION: After obtaining an informed consent, the patient was brought to cardiac bottle labeler. The right radial artery was cannulated using micropuncture technique, the micropuncture wire passed easily, then I placed a 5-Anguillan sheath in the right radial artery. Selective right and left coronary angiogram was performed using JR4 and JL3.5 catheters. Left heart catheterization was performed using the JR4 catheter which flipped into the LV then I did pullback across aortic valve. The procedure was completed without any complication. SELECTIVE CORONARY ANGIOGRAM: 1. The right coronary artery is a large caliber vessel. It is a dominant vessel and it is angiographically normal. It distally bifurcates into PDA and PLV branches, both are angiographically normal. 2. The left main is angiographically normal. It bifurcates into left circumflex, and left anterior descending artery. 3. Left circumflex is a large caliber vessel. It is a nondominant vessel. The proximal circumflex is normal. The mid circumflex is normal and gives rise into a large OM branch which bifurcates into 2 subbranches, appeared to be angiographically normal with the circumflex in the midportion, appeared to be normal and gives rise into a second OM which appeared to be normal. 4. The LAD, the proximal LAD appeared to be angiographically normal. The proximal LAD gives rise into a large diagonal branch which appeared to be angiographically normal. The mid LAD and distal LAD appeared to be angiographically normal. HEMODYNAMICS: The left ventricular end-diastolic pressure was 12 mmHg and no gradient was identified across the aortic valve. CONCLUSION: 1. Normal coronary angiogram. 2. Normal left ventricular end-diastolic pressure. POSTPROCEDURE MANAGEMENT: Medical treatment. MMODL / IJN: [id number] /
[2018-03-31 12:57] VITALS: TEMP 98.3
[2018-03-31 13:25] LABS: Glucose,Whole Blood 140 mg/dL (75-99)
--- NOTE | 2018-03-31 14:10 | P.PN ---
Subjective Progress Note Date: 03/31/18 Principal diagnosis: Acute hypoxemic respiratory failure secondary to an acute exacerbation of chronic obstructive pulmonary disease. This a 57-year-old white female patient that follows with CLARE Ivey/Dr. Hemphill, presents to the emergency department as a transfer from [facility] with complaints of epigastric discomfort, nausea, fatigue. Patient is somewhat of a poor historian. Past medical history is significant for hypertension, current every day smoker, patient has smoked on and off a pack a day for 40 years. Patient denied any fever or chills, denied any chest pain, denied any lightheadedness or dizziness, headaches, no vomiting, no diarrhea. She denies any history of chronic lung disease until now, eyes any prior history of MIs, diabetes mellitus. Chest x-ray showed mild interstitial fibrotic changes, no heart failure. At the [facility] her troponins were noted to be elevated. EKG showed sinus rhythm with T-wave inversion in the inferior leads. Chest CT was obtained, and showed no evidence of parenchymal consolidation, there were some nonpathologic enlarged lymph nodes in the mediastinum, some calcification of the mitral annulus, no pleural or pericardial fluid, no cardiomegaly, showed minimal interstitial lung disease. Echocardiogram showed left ventricular systolic function with EF of 55-60%, mild aortic valve sclerosis with trace aortic regurg, mild aortic stenosis. There was trace MR and trace TR right ventricular systolic pressure was less than 35 mmHg. initial labs showed a white count of 12.6, hemoglobin of 13.5, sodium was 137, potassium is 3.8, chloride was 91, CO2 is 39, BUN was 17 and creatinine was 0.57. Troponins were 0.118, 0.067, 0.043. Cardiology is following and is considering cardiac catheterization. ProBNP was elevated at 3730. She is requiring supplemental oxygen, she is on 4 L per nasal cannula and her pulse ox is 91-93%. Lung sounds are quite diminished and there are end expiratory wheezes. On 03/30/2018 patient seen in follow-up on selective care unit. She is resting comfortably in bed, in no acute distress, pulse ox on 3 L per nasal cannula with 94%, no fever or chills, today's examination reveals persistent wheezing, although slightly less prominent than yesterday's exam. No complaints of chest pain, no worsening dyspnea. These lab work has been reviewed, and showed a white count of 15.1, hemoglobin of 12.0, sodium of 144, potassium is 4.6, chloride is 102, CO2 is 38, BUN was 27 creatinine was 0.65. Blood culture showed no growth. Continue current medical treatment, and cardiology is scheduled the patient for heart catheterization tomorrow. The patient is seen today August [id number] in follow-up on the selective care unit. She is awake and alert in no acute distress. She did undergo cardiac catheterization earlier this morning and was found to have normal coronary angiogram and normal left ventricular end diastolic pressures. Mainly treated for COPD exacerbation. She is maintaining O2 saturations in the low 90s on 3 L/ m per nasal cannula. She's been afebrile. Somewhat hypertensive. Blood culture reveals no growth. Count 15.2. Hemoglobin 12.7. She remains on DuoNeb inhalations, Pulmicort and Perforomist inhalations, IV Solu-Medrol and empiric antibody eczema form of doxycycline. Objective - Vital Signs Vital signs: Vital Signs Temp 98.3 F 03/31/18 12:52 Pulse 92 03/31/18 09:22 Resp 20 03/31/18 13:22 BP 191/84 03/31/18 13:22 Pulse Ox 91 L 03/31/18 13:22 Intake & Output 03/30/18 03/31/18 03/31/18 18:59 06:59 18:59 Intake Total 1159.434 2788 450 Balance 0760.760 0163 450 Weight 84.1 kg Intake: IV 50 Intake, IV Titration 026.052 7434 400 Amount Heparin Sod,Pork in 0.45% 34.587 NaCl 25,000 unit In 0.45 % NaCl 1 250ml.bag @ 12 UNITS/KG/HR 9.41 mls/hr IV .Q24H [facility] Rx#: [id number] Sodium Chloride 0.9% 1, 700 800 400 000 ml @ 100 mls/hr IV . Q10H [facility] Rx#:[id number] Sodium Chloride 0.9% 1, 1000 000 ml In Empty Bag 1 bag @ 1 ML/KG/HR 82.1 mls/hr IV .[id number] [facility] Rx#: [id number] Oral 480 Other: Voiding Method Toilet Toilet # Voids 1 1 2 # Bowel Movements 1 - Exam GENERAL EXAM: Alert, active, comfortable in no apparent distress. On oxygen per nasal cannula HEAD: Normocephalic. EYES: Normal reaction of pupils, equal size. NOSE: Clear with pink turbinates. THROAT: No erythema or exudates. NECK: No masses, no JVD. CHEST: No chest wall deformity. LUNGS: Equal air entry with bilateral end expiratory wheeze, diminished. CVS: S1 and S2 normal with no audible murmur, regular rhythm. ABDOMEN: No hepatosplenomegaly, normal bowel sounds, no guarding or rigidity. SPINE: No scoliosis or deformity SKIN: No rashes CENTRAL NERVOUS SYSTEM: No focal deficits, tone is normal in all 4 extremities. EXTREMITIES: There is no peripheral edema. No clubbing, no cyanosis. Peripheral pulses are intact. - Labs CBC & Chem 7: 03/31/18 05:44 03/30/18 05:23 Labs: Abnormal Lab Results - Last 24 Hours (Table) 03/30/18 03/30/18 03/31/18 Range/Units 16:35 20:46 05:44 WBC 15.2 H (3.8-10.6) k/uL MCV 104.7 H (80.0-100.0) fL Neutrophils # 12.3 H (1.3-7.7) k/uL POC Glucose (mg/dL) 183 H 105 H (75-99) mg/dL 03/31/18 03/31/18 Range/Units 05:58 13:15 WBC (3.8-10.6) k/uL MCV (80.0-100.0) fL Neutrophils # (1.3-7.7) k/uL POC Glucose (mg/dL) 101 H 140 H (75-99) mg/dL Microbiology - Last 24 Hours (Table) 03/27/18 20:02 Blood Culture - Preliminary Blood No Growth after 72 hours Assessment and Plan Assessment: Assessment: #1. Acute hypoxemic respiratory failure related to acute exacerbation of chronic obstructive pulmonary disease #2. Non-ST elevated myocardial infarction #3. Minimal interstitial lung disease seen on the CT chest and chest x-ray, no acute cardiopulmonary process #4. Suspect advanced COPD with chronic hypercapnic respiratory failure #5. Nicotine dependence, chronic and ongoing, patient carries a [id number] smoking history #6. Hypertension #7. Leukocytosis, could be related to steroids Plan: The patient was seen and evaluated by Dr. Spicer. The patient's cardiac catheterization revealed normal coronary arteries. We'll continue her treatment plan for COPD. She is cleared for discharge from pulmonary standpoint. Complete a course of antibiotics. Complete prednisone burst and taper starting at 40 mg daily for 4 days. She really should follow-up in our office and undergo full pulmonary function testing to evaluate the severity of her COPD and make recommendations regarding maintenance medications. She could be initiated on Symbicort, DuoNeb inhalations and the HFA of Ventolin. She is again encouraged regarding the importance of complete smoking cessation. Continue NicoDerm patch. She does qualify for home oxygen at this point which is being arranged for her. She should keep O2 saturations 88% or higher. She is encouraged to call sooner with any worsening of symptoms or other questions or concerns. I, the cosigning physician, performed a history & physical examination of the patient. Lungs sounds with few scattered rhonchi, end expiratory wheeze, diminished. Maintaining good O2 saturations in the 90s on 3 L/m per nasal cannula. I discussed the assessment and plan of care with my nurse practitioner , Pili Arreguin. I attest to the above note as dictated by her.
[2018-03-31] MEDS ORDERED: HYDROCHLOROTHIAZIDE 25 MG TAB PO ONE (15:00)
[2018-03-31 15:04] VITALS: BP 174/85; RESP 18
--- NOTE | 2018-03-31 19:19 | P.DS ---
Providers Date of admission: 03/27/18 19:47 Attending physician: Kyle Jimenez Consults: 03/27/18 19:50 Consult Physician Urgent Consulting Provider: Donald Clark Consult Reason/Comments: dyspnea Do you want consulting provider notified?: Yes Consult Physician Urgent Consulting Provider: Eusebio Baldwin Consult Reason/Comments: Cardiac evaluation Do you want consulting provider notified?: Yes Primary care physician: [facility] Course: patient is admitted for shortness of breath secondary to COPD exacerbation and patient is on on systemic steroids relational treatmentsTreatments minimally elevated troponin secondary to hypoxemia patient will undergo stress test once her transferred to status is stabilized. Patient does have minimal interstitial lung disease. 03/30/2018 Patient desaturated to 70% upon ambulation and patient still has significant wheezing on exam and rhonchus breath sounds. Patient may need for day or 2. Further cardiac workup as per cardiology 03/31/2018 Patient continues to desaturate upon ambulation and requiring home oxygen pulmonary is recommending home O2 and patient will be discharged today patient underwent a cardiac catheterization which did not show any atherosclerotic coronary occlusive disease that need stenting PHYSICAL EXAMINATION: GENERAL: The patient is alert and oriented x3, not in any acute distress. Well developed, well nourished. HEENT: Pupils are round and equally reacting to light. EOMI. No scleral icterus. No conjunctival pallor. Normocephalic, atraumatic. No pharyngeal erythema. No thyromegaly. CARDIOVASCULAR: S1 and S2 present. No murmurs, rubs, or gallops. PULMONARY: bilateral expiratory wheezing on exam ABDOMEN: Soft, nontender, nondistended, normoactive bowel sounds. No palpable organomegaly. MUSCULOSKELETAL: No joint swelling or deformity. EXTREMITIES: No cyanosis, clubbing, or pedal edema. NEUROLOGICAL: Gross neurological examination did not reveal any focal deficits. SKIN: No rashes. Assessment and Plan Plan: -acute hypercapnic respiratory failure secondary to severe exacerbation . -Minimally elevated troponin secondary to hypoxemia, further workup as per cardiology -Possible probably fibrosis - minimally elevated troponin secondary to hypoxia -Epigastric abdominal discomfort probably due to peptic ulcer disease or gastritis: Patient Condition at Discharge: Stable Plan - Discharge Summary Discharge Rx Participant: No New Discharge Prescriptions: New Albuterol Inhaler [Ventolin Hfa Inhaler] 1 - 2 puff INHALATION Q6HR PRN #1 inhaler PRN Reason: Shortness Of Breath Or Wheezing Aspirin 81 mg PO DAILY #30 chewable Budesonide-Formot 160-4.5 Mcg [Symbicort 160-4.5 Mcg Inhaler] 2 puff INHALATION BID #1 inhaler Doxycycline Monohydrate [Monodox] 100 mg PO BID 3 Days #6 cap predniSONE 10 mg PO DAILY #30 tab Tiotropium Freedom [Spiriva] 1 cap INHALATION DAILY #1 device Hydrochlorothiazide 25 mg PO DAILY #20 tablet Continue Ranitidine HCl [Zantac] 75 mg PO AC-BID Vitamin B Complex 1 cap PO DAILY Multivitamins, Thera [Multivitamin (formulary)] 1 tab PO DAILY Cyanocobalamin (Vitamin B-12) [Vitamin B-12] 1,000 mcg PO DAILY Calcium/Magnesium/Zinc [Ysqrkgw-Jyqrbkshl-Pdzv Tablet] 1 tab PO DAILY Ascorbic Acid [Vitamin C] 1,000 mg PO DAILY Otc Hot Flash Tab(Unknown) 1 tab PO DAILY Discontinued Hydrochlorothiazide [Hydrodiuril] 25 mg PO DAILY Discharge Medication List Ascorbic Acid [Vitamin C] 1,000 mg PO DAILY 03/27/18 [History] Calcium/Magnesium/Zinc [Ajrmmxm-Qlwvwhjtr-Juma Tablet] 1 tab PO DAILY 03/27/18 [ History] Cyanocobalamin (Vitamin B-12) [Vitamin B-12] 1,000 mcg PO DAILY 03/27/18 [ History] Multivitamins, Thera [Multivitamin (formulary)] 1 tab PO DAILY 03/27/18 [History ] Otc Hot Flash Tab(Unknown) 1 tab PO DAILY 03/27/18 [History] Ranitidine HCl [Zantac] 75 mg PO AC-BID 03/27/18 [History] Vitamin B Complex 1 cap PO DAILY 03/27/18 [History] Albuterol Inhaler [Ventolin Hfa Inhaler] 1 - 2 puff INHALATION Q6HR PRN #1 inhaler 03/30/18 [Rx] Aspirin 81 mg PO DAILY #30 chewable 03/30/18 [Rx] Budesonide-Formot 160-4.5 Mcg [Symbicort 160-4.5 Mcg Inhaler] 2 puff INHALATION BID #1 inhaler 03/30/18 [Rx] Doxycycline Monohydrate [Monodox] 100 mg PO BID 3 Days #6 cap 03/30/18 [Rx] Tiotropium Freedom [Spiriva] 1 cap INHALATION DAILY #1 device 03/30/18 [Rx] predniSONE 10 mg PO DAILY #30 tab 03/30/18 [Rx] Hydrochlorothiazide 25 mg PO DAILY #20 tablet 03/31/18 [Rx] Follow up Appointment(s)/Referral(s): Donald Clark MD [STAFF PHYSICIAN] - 04/24/18 9:00 am Eusebio Baldwin MD [STAFF PHYSICIAN] - 04/06/18 1:15 pm John Julian NPC [Family Provider] - 04/01/18 11:30 am (Friday) Palak Stevens [NON-STAFF] - Patient Instructions/Handouts: *Sur[facility] - After Heart Catheterization - Sap Senior Developer Instructions, Pulmonary Fibrosis (DC), COPD (Chronic Obstructive Pulmonary Disease) (DC) Discharge Disposition: HOME WITH HOME HEALTH SERVICES
== END 2018-03-31 16:26 | disposition home or self-care (01) | DRG 190 ==
LOC: EC 18:55 → OBSVTOIN 19:47 → 3SCARD 19:47
PROVIDERS: ADMIT Internal Medicine; ATTEND Internal Medicine
PROC: B2111ZZ Fluoroscopy of Multiple Coronary Arteries using Low Osmolar Contrast (ICD-10-PCS; 2018-03-31)
PROC: 4A023N7 Measurement of Cardiac Sampling and Pressure, Left Heart, Percutaneous Approach (ICD-10-PCS; principal; 2018-03-31 13:30)
DX: J44.1 Chronic obstructive pulmonary disease with (acute) exacerbation (principal); J96.22 Acute and chronic respiratory failure with hypercapnia; J96.01 Acute respiratory failure with hypoxia; J84.9 Interstitial pulmonary disease, unspecified; I35.2 Nonrheumatic aortic (valve) stenosis with insufficiency; I10 Essential (primary) hypertension; E11.9 Type 2 diabetes mellitus without complications; R77.8 Other specified abnormalities of plasma proteins; K27.9 Peptic ulcer, site unspecified, unspecified as acute or chronic, without hemorrhage or perforation; K29.70 Gastritis, unspecified, without bleeding; L30.9 Dermatitis, unspecified; D72.829 Elevated white blood cell count, unspecified; T38.0X5A Adverse effect of glucocorticoids and synthetic analogues, initial encounter; F17.210 Nicotine dependence, cigarettes, uncomplicated; Z71.6 Tobacco abuse counseling; Z79.899 Other long term (current) drug therapy; Z98.51 Tubal ligation status; Z83.3 Family history of diabetes mellitus; Z82.49 Family history of ischemic heart disease and other diseases of the circulatory system; Z82.5 Family history of asthma and other chronic lower respiratory diseases
CPT/HCPCS: 71046; 71250; 80048; 80053; 80061; 82550; 82553; 83605; 83880; 84484; 85025; 85610; 85730; 87040; 93005; 93306; 93458; 94640; 99285

== ENCOUNTER 2020-04-28 22:50 | Inpatient (IN) | payer OTHER ==
[2020-04-28] MEDS ORDERED: SODIUM CHLORIDE 0.9% 1,000 ML IV STA (23:19)
[2020-04-28] MEDS ORDERED: IPRATROPIUM-ALBUTEROL 3 ML NEB INHALATION STA (23:19)
[2020-04-28] MEDS ORDERED: SODIUM CHLORIDE 0.9% 500 ML 500 ML IV STA (23:19)
--- NOTE | 2020-04-28 23:27 | ED ---
SOB HPI - General Chief Complaint: Shortness of Breath Stated Complaint: SOB Time Seen by Provider: 04/28/20 23:07 Source: patient, RN notes reviewed, old records reviewed Mode of arrival: ambulatory Limitations: no limitations - History of Present Illness Initial Comments: This is a 59-year-old male DF for evaluation patient has severe history of COPD hypertension with continued smoking. Patient's brought in by her son today states she is severely short of breath. No no recent travel history no significant sick contacts and no current chest pain. Patient denying fever MD Complaint: shortness of breath, cough -: days(s) Severity: severe Severity scale (1-10): 9 Consistency: constant Improves With: oxygen Worsens With: exertion Known History Of: COPD, asthma Context: recent URI, anxiety, recent illness Associated Symptoms: cough, sputum production Treatments Prior to Arrival: none - Related Data Home Medications Medication Instructions Recorded Confirmed Ascorbic Acid [Vitamin C] 1,000 mg PO DAILY 03/27/18 03/27/18 Calcium/Magnesium/Zinc 1 tab PO DAILY 03/27/18 03/27/18 [Mqxlwus-Uuziuagyi-Wbar Tablet] Cyanocobalamin (Vitamin B-12) 1,000 mcg PO DAILY 03/27/18 03/27/18 [Vitamin B-12] Multivitamins, Thera [Multivitamin 1 tab PO DAILY 03/27/18 03/27/18 (formulary)] Otc Hot Flash Tab(Unknown) 1 tab PO DAILY 03/27/18 03/27/18 Vitamin B Complex 1 cap PO DAILY 03/27/18 03/27/18 raNITIdine HCL [Zantac] 75 mg PO AC-BID 03/27/18 03/27/18 Previous Rx's Medication Instructions Recorded Albuterol Inhaler (Mhu) [Ventolin 1 - 2 puff INHALATION Q6HR PRN #1 03/30/18 Hfa Inhaler (Mhu)] inhaler Aspirin 81 mg PO DAILY #30 chewable 03/30/18 Budesonide-Formot 160-4.5 Mcg 2 puff INHALATION BID #1 inhaler 03/30/18 [Symbicort 160-4.5 Mcg Inhaler] Doxycycline Monohydrate [Monodox] 100 mg PO BID 3 Days #6 cap 03/30/18 Tiotropium [place] [Spiriva] 1 cap INHALATION DAILY #1 device 03/30/18 predniSONE 10 mg PO DAILY #30 tab 03/30/18 Omeprazole [PriLOSEC] 40 [facility] PO [facility]14 capsule. 03/31/18 hydroCHLOROthiazide 25 mg PO DAILY #20 tablet 03/31/18 Allergies Allergy/AdvReac Type Severity Reaction Status Date / Time No Known Allergies Allergy Verified 04/28/20 23:09 Review of Systems ROS Statement: Those systems with pertinent positive or pertinent negative responses have been documented in the HPI. ROS Other: All systems not noted in ROS Statement are negative. Past Medical History Past Medical History: COPD, Hypertension History of Any Multi-Drug Resistant Organisms: None Reported Past Surgical History: Tonsillectomy, Tubal Ligation Past Anesthesia/Blood Transfusion Reactions: No Reported Reaction Past Psychological History: No Psychological Hx Reported Smoking Status: Current every day smoker Past Alcohol Use History: Daily Past Drug Use History: None Reported - Past Family History Father Family Medical History: Diabetes Mellitus Additional Family Medical History / Comment(s): enlarged heart Mother Family Medical History: Asthma General Exam Limitations: no limitations General appearance: alert, in no apparent distress, anxious Head exam: Present: atraumatic, normocephalic, normal inspection Eye exam: Present: normal appearance, PERRL, EOMI. Absent: scleral icterus, conjunctival injection, periorbital swelling ENT exam: Present: normal exam, mucous membranes moist Neck exam: Present: normal inspection. Absent: tenderness, meningismus, lymphadenopathy Respiratory exam: Present: respiratory distress, wheezes, accessory muscle use, decreased breath sounds, prolonged expiratory. Absent: rales, rhonchi, stridor Cardiovascular Exam: Present: normal rhythm, tachycardia, normal heart sounds. Absent: systolic murmur, diastolic murmur, rubs, gallop, clicks GI/Abdominal exam: Present: soft, normal bowel sounds. Absent: distended, tenderness, guarding, rebound, rigid Extremities exam: Present: normal inspection, full ROM, normal capillary refill. Absent: tenderness, pedal edema, joint swelling, calf tenderness Back exam: Present: normal inspection Neurological exam: Present: alert, oriented X3, CN II-XII intact Psychiatric exam: Present: normal affect, normal mood Skin exam: Present: warm, dry, intact, normal color. Absent: rash Course Vital Signs 04/28/20 04/29/20 04/29/20 23:05 00:09 00:24 Temperature 97.8 F Pulse Rate 107 H 84 79 Respiratory 24 Rate Blood Pressure 154/102 O2 Sat by Pulse 79 L Oximetry 04/29/20 04/29/20 00:56 02:00 Temperature Pulse Rate 98 94 Respiratory 18 16 Rate Blood Pressure 145/86 124/89 O2 Sat by Pulse 95 97 Oximetry - Reevaluation(s) Reevaluation #1: 04/29/20 02:04 Medical records reviewed Reevaluation #2: 04/29/20 02:04 Patient oxygen level is improved with supplemental O2 and prolonged breathing treatment Reevaluation #3: 04/29/20 02:04 Patient still remains O2 dependent and severely short of breath - Consultations Consultation #1: Spoke with [facility] who agreed to admit the patient Medical Decision Making - Medical Decision Making 59 female presented today for evaluation, patient does have severe COPD exacerbation with hypoxia, patient requiring 4 L supplemental O2 for oxygen over 90%. Patient will be admitted for pulmonology to evaluate treat - Lab Data Result diagrams: 04/28/20 23:29 04/28/20 23:29 Lab Results 04/28/20 04/28/20 04/28/20 Range/Units 23:29 23:29 23:29 WBC 9.4 (3.8-10.6) k/uL RBC 4.41 (3.80-5.40) m/uL Hgb 14.6 (11.4-16.0) gm/dL Hct 45.1 (34.0-46.0) % MCV 102.2 H (80.0-100.0) fL MCH 33.1 (25.0-35.0) pg MCHC 32.4 (31.0-37.0) g/dL RDW 14.0 (11.5-15.5) % Plt Count 164 (150-450) k/uL MPV 8.0 Neutrophils % 78 % Lymphocytes % 13 % Monocytes % 6 % Eosinophils % 1 % Basophils % 1 % Neutrophils # 7.3 (1.3-7.7) k/uL Lymphocytes # 1.2 (1.0-4.8) k/uL Monocytes # 0.5 (0-1.0) k/uL Eosinophils # 0.1 (0-0.7) k/uL Basophils # 0.0 (0-0.2) k/uL Macrocytosis Slight PT 9.9 (9.0-12.0) sec INR 0.9 (<1.2) APTT 22.6 (22.0-30.0) sec Sodium 138 (137-145) mmol/L Potassium 4.3 (3.5-5.1) mmol/L Chloride 96 L (98-107) mmol/L Carbon Dioxide 31 H (22-30) mmol/L Anion Gap 11 mmol/L BUN 29 H (7-17) mg/dL Creatinine 0.57 (0.52-1.04) mg/dL Est GFR (CKD-EPI)AfAm >90 (>60 ml/min/1.73 sqM) Est GFR (CKD-EPI)NonAf >90 (>60 ml/min/1.73 sqM) Glucose 128 H (74-99) mg/dL Plasma Lactic Acid Aaron (0.7-2.0) mmol/L Calcium 9.8 (8.4-10.2) mg/dL Magnesium 2.0 (1.6-2.3) mg/dL Total Bilirubin 0.7 (0.2-1.3) mg/dL AST 40 H (14-36) U/L ALT 32 (4-34) U/L Alkaline Phosphatase 59 (38-126) U/L Troponin I (0.000-0.034) ng/mL NT-Pro-B Natriuret Pep pg/mL Total Protein 7.8 (6.3-8.2) g/dL Albumin 4.9 (3.5-5.0) g/dL Coronavirus (PCR) (Not Detectd) 04/28/20 04/28/20 04/29/20 Range/Units 23:29 23:29 00:01 WBC (3.8-10.6) k/uL RBC (3.80-5.40) m/uL Hgb (11.4-16.0) gm/dL Hct (34.0-46.0) % MCV (80.0-100.0) fL MCH (25.0-35.0) pg MCHC (31.0-37.0) g/dL RDW (11.5-15.5) % Plt Count (150-450) k/uL MPV Neutrophils % % Lymphocytes % % Monocytes % % Eosinophils % % Basophils % % Neutrophils # (1.3-7.7) k/uL Lymphocytes # (1.0-4.8) k/uL Monocytes # (0-1.0) k/uL Eosinophils # (0-0.7) k/uL Basophils # (0-0.2) k/uL Macrocytosis PT (9.0-12.0) sec INR (<1.2) APTT (22.0-30.0) sec Sodium (137-145) mmol/L Potassium (3.5-5.1) mmol/L Chloride (98-107) mmol/L Carbon Dioxide (22-30) mmol/L Anion Gap mmol/L BUN (7-17) mg/dL Creatinine (0.52-1.04) mg/dL Est GFR (CKD-EPI)AfAm (>60 ml/min/1.73 sqM) Est GFR (CKD-EPI)NonAf (>60 ml/min/1.73 sqM) Glucose (74-99) mg/dL Plasma Lactic Acid Aaron 1.0 (0.7-2.0) mmol/L Calcium (8.4-10.2) mg/dL Magnesium (1.6-2.3) mg/dL Total Bilirubin (0.2-1.3) mg/dL AST (14-36) U/L ALT (4-34) U/L Alkaline Phosphatase (38-126) U/L Troponin I <0.012 (0.000-0.034) ng/mL NT-Pro-B Natriuret Pep 145 pg/mL Total Protein (6.3-8.2) g/dL Albumin (3.5-5.0) g/dL Coronavirus (PCR) (Not Detectd) 04/29/20 Range/Units 00:43 WBC (3.8-10.6) k/uL RBC (3.80-5.40) m/uL Hgb (11.4-16.0) gm/dL Hct (34.0-46.0) % MCV (80.0-100.0) fL MCH (25.0-35.0) pg MCHC (31.0-37.0) g/dL RDW (11.5-15.5) % Plt Count (150-450) k/uL MPV Neutrophils % % Lymphocytes % % Monocytes % % Eosinophils % % Basophils % % Neutrophils # (1.3-7.7) k/uL Lymphocytes # (1.0-4.8) k/uL Monocytes # (0-1.0) k/uL Eosinophils # (0-0.7) k/uL Basophils # (0-0.2) k/uL Macrocytosis PT (9.0-12.0) sec INR (<1.2) APTT (22.0-30.0) sec Sodium (137-145) mmol/L Potassium (3.5-5.1) mmol/L Chloride (98-107) mmol/L Carbon Dioxide (22-30) mmol/L Anion Gap mmol/L BUN (7-17) mg/dL Creatinine (0.52-1.04) mg/dL Est GFR (CKD-EPI)AfAm (>60 ml/min/1.73 sqM) Est GFR (CKD-EPI)NonAf (>60 ml/min/1.73 sqM) Glucose (74-99) mg/dL Plasma Lactic Acid Aaron (0.7-2.0) mmol/L Calcium (8.4-10.2) mg/dL Magnesium (1.6-2.3) mg/dL Total Bilirubin (0.2-1.3) mg/dL AST (14-36) U/L ALT (4-34) U/L Alkaline Phosphatase (38-126) U/L Troponin I (0.000-0.034) ng/mL NT-Pro-B Natriuret Pep pg/mL Total Protein (6.3-8.2) g/dL Albumin (3.5-5.0) g/dL Coronavirus (PCR) Not Detected (Not Detectd) - EKG Data -: EKG Interpreted by Me (EKG shows sinus rhythm 99, MI 160 QRS 60 QTC 456) - Radiology Data Radiology results: report reviewed (Chest x-rays negative for acute disease), image reviewed Critical Care Time Critical Care Time: Yes Total Critical Care Time: 31 Disposition Clinical Impression: COPD with acute exacerbation, Acute exacerbation of chronic obstructive pulmonary disease, Hypoxia Disposition: ADMITTED IP TO THIS HOSP Condition: Fair Is patient prescribed a controlled substance at d/c from ED?: No
[2020-04-28 23:35] LABS: Basophils % (A) 1 %; Eosinophils # (A) 0.1 k/uL (0-0.7); Eosinophils % (A) 1 %; HCT 45.1 % (34.0-46.0); HGB 14.6 gm/dL (11.4-16.0); Lymphocytes # (A) 1.2 k/uL (1.0-4.8); Lymphocytes % (A) 13 %; MCH 33.1 pg (25.0-35.0); MCHC 32.4 g/dL (31.0-37.0); MCV 102.2 fL (80.0-100.0); Macrocytosis Slight; Monocytes # (A) 0.5 k/uL (0-1.0); Monocytes % (A) 6 %; Neutrophils # (A) 7.3 k/uL (1.3-7.7); Neutrophils % (A) 78 %; Platelet Count 164 k/uL (150-450); RBC 4.41 m/uL (3.80-5.40); WBC 9.4 k/uL (3.8-10.6)
[2020-04-28 23:50] LABS: ALT 32 U/L (4-34); AST 40 U/L (14-36); African American GFR (CKD) >90 (>60 ml/min/1.73 sqM); Albumin 4.9 g/dL (3.5-5.0); Alkaline Phosphatase 59 U/L (38-126); Anion Gap 11 mmol/L; Blood Urea Nitrogen 29 mg/dL (7-17); Calcium 9.8 mg/dL (8.4-10.2); Carbon Dioxide 31 mmol/L (22-30); Chloride 96 mmol/L (98-107); Glucose 128 mg/dL (74-99); Non-African American GFR(CKD) >90 (>60 ml/min/1.73 sqM); Sodium 138 mmol/L (137-145); Total Bilirubin 0.7 mg/dL (0.2-1.3); Total Protein 7.8 g/dL (6.3-8.2)
--- NOTE | 2020-04-28 23:53 | XR ---
EXAMINATION TYPE: XR chest 2V DATE OF EXAM: 04/28/2020 COMPARISON: 10/27/2019 HISTORY: Short of breath. COPD. TECHNIQUE: 2 views FINDINGS: There is no heart failure nor confluent pneumonic infiltrate. Costophrenic angles are clear . There are chest leads. The bony thorax is intact. Thoracic aorta is atheromatous. IMPRESSION: No active cardiopulmonary disease. No change.
[2020-04-28 23:54] LABS: INR 0.9 (<1.2); Partial Thromboplastin Time 22.6 sec (22.0-30.0); Prothrombin Time 9.9 sec (9.0-12.0)
[2020-04-29 00:10] LABS: Potassium 4.3 mmol/L (3.5-5.1)
[2020-04-29] MEDS ORDERED: methylPREDNISolone SOD SUCCI 125 MG/2 ML VIAL IV STA (01:30)
[2020-04-29] MEDS ORDERED: IPRATROPIUM-ALBUTEROL 3 ML NEB INHALATION PRN (01:30)
[2020-04-29] MEDS: methylPREDNISolone SOD SUCCI 125 MG/2 ML VIAL IV SCH ×2 (05:37→13:03)
[2020-04-29] MEDS: ALBUTEROL NEBULIZED 2.5 MG/3 ML INHALATION SCH ×2 (07:47→11:37)
[2020-04-29] MEDS ORDERED: ENOXAPARIN 40 MG/0.4 ML SYRINGE SQ SCH (09:00)
--- NOTE | 2020-04-29 11:45 | P.CNPUL ---
History of Present Illness Consult date: 04/29/20 Requesting physician: Clary Story Reason for consult: dyspnea, COPD Chief complaint: Shortness of breath History of present illness: This is a very pleasant 59-year-old female patient who follows with Dr. Tillman/Macario Julian NP as her primary care provider. She has a history of obesity, anxiety, gastroesophageal reflux disease, retention, chronic and ongoing tobacco dependence. She does have significant chronic obstructive pulmonary disease with an FEV1 value of 1.28 L at 59% of predicted. She follows with Dr. Clark in our office. She is on the Court, Spiriva and albuterol. She presented here to the emergency room yesterday with complaints of increasing shortness of breath dry nonproductive cough. Dyspnea on minimal exertion. Chest x-ray reveals no acute cardiopulmonary disease. He is seen today in consultation on the regular medical floor. Awake and alert in no acute distress. She is still somewhat dyspneic with minimal conversation, minimal activity. White count 9.4. Hemoglobin 14.6. Sodium 138. Potassium 4.3. Creatinine 0.57. Troponin negative. ProBNP 145. Arriaga virus not detected. He's been initiated and DuoNeb inhalations, IV Solu-Medrol, Lovenox. Review of Systems REVIEW OF SYSTEMS: CONSTITUTIONAL: Denies any recent significant weight loss or weight gain. EYES: Denies change in vision. EARS, NOSE, MOUTH, THROAT: Denies headaches, denies sore throat. CARDIOVASCULAR: Denies chest pain, palpitations or syncopal episodes. RESPIRATORY: Positive for shortness of breath, cough, congestion no hemoptysis. GASTROINTESTINAL: Denies change in appetite, denies abdominal pain GENITOURINARY: Denies hematuria, denies infections. MUSKULOSKELETAL: Denies pain, denies swelling. INTEGUMENTARY: Denies rash, denies eczema. NEUROLOGICAL: Denies recent memory loss, no recent seizure activity. PSYCHIATRIC: Denies anxiety, denies depression. HEMATOLOGIC/LYMPHATIC: Denies anemia, denies enlarged lymph nodes. Past Medical History Past Medical History: COPD, Hypertension History of Any Multi-Drug Resistant Organisms: None Reported Past Surgical History: Tonsillectomy, Tubal Ligation Past Anesthesia/Blood Transfusion Reactions: No Reported Reaction Past Psychological History: No Psychological Hx Reported Smoking Status: Current every day smoker Past Alcohol Use History: Daily Past Drug Use History: None Reported - Past Family History Father Family Medical History: Diabetes Mellitus Additional Family Medical History / Comment(s): enlarged heart Mother Family Medical History: Asthma Medications and Allergies Home Medications Medication Instructions Recorded Confirmed Type Ascorbic Acid [Vitamin C] 1,000 mg PO DAILY 03/27/18 04/29/20 History Calcium/Magnesium/Zinc 1 tab PO DAILY 03/27/18 04/29/20 History [Yvuxvvh-Iajvnnmuf-Kksc Tablet] Cyanocobalamin (Vitamin B-12) 1,000 mcg PO DAILY 03/27/18 04/29/20 History [Vitamin B-12] Multivitamins, Thera [Multivitamin 1 tab PO DAILY 03/27/18 04/29/20 History (formulary)] Vitamin B Complex 1 cap PO DAILY 03/27/18 04/29/20 History Aspirin 81 mg PO DAILY #30 chewable 03/30/18 04/29/20 Rx hydroCHLOROthiazide 25 mg PO DAILY #20 tablet 03/31/18 04/29/20 Rx Albuterol Inhaler [Ventolin Hfa 2 puff INHALATION RT-Q6H PRN 04/29/20 04/29/20 History Inhaler] Budesonide-Formot 160-4.5 Mcg 2 puff INHALATION RT-BID 04/29/20 04/29/20 History [Symbicort 160-4.5 Mcg Inhaler] Losartan Potassium 50 mg PO DAILY 04/29/20 04/29/20 History Magnesium 200 mg PO DAILY 04/29/20 04/29/20 History Potassium Gluconate 99 mg PO DAILY 04/29/20 04/29/20 History Tiotropium [place] [Spiriva] 1 cap INHALATION RT-DAILY 04/29/20 04/29/20 History Allergies Allergy/AdvReac Type Severity Reaction Status Date / Time No Known Allergies Allergy Verified 04/29/20 08:30 Physical Exam Vitals: Vital Signs Temp Pulse Pulse Resp BP BP Pulse Ox 04/29/20 08:00 98.2 F 100 16 121/75 93 L 04/29/20 02:32 18 04/29/20 02:00 97.9 F 94 93 18 124/89 141/94 92 L 04/29/20 00:56 98 18 145/86 95 04/29/20 00:24 79 04/29/20 00:09 84 04/28/20 23:05 97.8 F 107 H 24 154/102 79 L Intake and Output 04/28/20 04/29/20 04/29/20 22:59 06:59 14:59 Intake Total 220 Balance 220 Intake: Oral 220 Other: Voiding Method Toilet # Voids 1 1 Weight 81.647 kg GENERAL EXAM: Alert, pleasant 59-year-old female patient, on 4 L/m per nasal cannula, comfortable in no apparent distress. HEAD: Normocephalic. EYES: Normal reaction of pupils, equal size. NOSE: Clear with pink turbinates. THROAT: No erythema or exudates. NECK: No masses, no JVD. CHEST: No chest wall deformity. LUNGS: Equal air entry with bilateral end expiratory wheeze, diminished. CVS: S1 and S2 normal with no audible murmur, regular rhythm. ABDOMEN: No hepatosplenomegaly, normal bowel sounds, no guarding or rigidity. SPINE: No scoliosis or deformity SKIN: No rashes CENTRAL NERVOUS SYSTEM: No focal deficits, tone is normal in all 4 extremities. EXTREMITIES: There is no peripheral edema. No clubbing, no cyanosis. Peripheral pulses are intact. Results - Laboratory Findings CBC and BMP: 04/28/20 23:29 04/28/20 23:29 PT/INR, D-dimer PT 9.9 sec (9.0-12.0) 04/28/20 23:29 INR 0.9 (<1.2) 04/28/20 23:29 Abnormal lab findings: Abnormal Labs 04/28/20 04/28/20 23:29 23:29 MCV 102.2 H Chloride 96 L Carbon Dioxide 31 H BUN 29 H Glucose 128 H AST 40 H - Diagnostic Findings Chest x-ray: image reviewed (No acute pulmonary process) Assessment and Plan Assessment: 1 Acute exacerbation of chronic obstructive pulmonary disease. FEV1 value 59% of predicted 2 Chronic and ongoing tobacco dependence 3 Acute on chronic cocci make respiratory failure secondary to above 4 Obesity 5 Hypertension 6 Gastroesophageal reflux disease 7 History of mild interstitial lung disease Plan: The patient was seen and evaluated by Dr. Spicer Chest x-ray and labs reviewed Continue DuoNeb inhalations, IV Solu-Medrol Add Symbicort Increase her activity as tolerated Titrate down the FiO2 as tolerated Educated regarding the importance of complete smoking cessation NicoDerm patch is offered Probable discharge in the a.m. We'll continue to follow and make further recommendations based on her clinical status I, the cosigning physician, performed a history & physical examination of the patient. Lungs sounds with bilateral end expiratory wheeze. Maintaining good O2 saturations in the 90s on 4 L/m per nasal cannula. I discussed the assessment and plan of care with my nurse practitioner, Pili Arreguin. I attest to the above consultation as dictated by her. Time with Patient: Greater than 30
[2020-04-29 11:56] LABS: Glucose,Whole Blood 153 mg/dL (75-99)
[2020-04-29] MEDS: IPRATROPIUM-ALBUTEROL 3 ML NEB INHALATION SCH ×3 (11:59→21:30)
[2020-04-29] MEDS: NICOTINE 14MG/24HR PATCH TRANSDERM SCH (13:05)
--- NOTE | 2020-04-29 13:35 | P.HPIM ---
History of Present Illness Patient with known history of COPD continues to smoke came in with complaints of nonproductive cough. Denied any fever chills chest x-ray did not show any pneumonia. covid 19 is negative. Patient had a FEV1 of 59% predicted in the past. Doesn't usually use oxygen at home. Review of Systems REVIEW OF SYSTEMS: CONSTITUTIONAL: No fever, no malaise, no fatigue. HEENT: No recent visual problems or hearing problems. Denied any sore throat. CARDIOVASCULAR: No chest pain, orthopnea, PND, no palpitations, no syncope. PULMONARY: no hemoptysis. GASTROINTESTINAL: No diarrhea, no nausea, no vomiting, no abdominal pain. NEUROLOGICAL: No headaches, no weakness, no numbness. HEMATOLOGICAL: Denies any bleeding or petechiae. GENITOURINARY: Denies any burning micturition, frequency, or urgency. MUSCULOSKELETAL/RHEUMATOLOGICAL: Denies any joint pain, swelling, or any muscle pain. ENDOCRINE: Denies any polyuria or polydipsia. The rest of the 14-point review of systems is negative. Past Medical History Past Medical History: COPD, Hypertension History of Any Multi-Drug Resistant Organisms: None Reported Past Surgical History: Tonsillectomy, Tubal Ligation Past Anesthesia/Blood Transfusion Reactions: No Reported Reaction Past Psychological History: No Psychological Hx Reported Smoking Status: Current every day smoker Past Alcohol Use History: Daily Past Drug Use History: None Reported - Past Family History Father Family Medical History: Diabetes Mellitus Additional Family Medical History / Comment(s): enlarged heart Mother Family Medical History: Asthma Medications and Allergies Home Medications Medication Instructions Recorded Confirmed Type Ascorbic Acid [Vitamin C] 1,000 mg PO DAILY 03/27/18 04/29/20 History Calcium/Magnesium/Zinc 1 tab PO DAILY 03/27/18 04/29/20 History [Ekgrutu-Xoqpjlquz-Fcic Tablet] Cyanocobalamin (Vitamin B-12) 1,000 mcg PO DAILY 03/27/18 04/29/20 History [Vitamin B-12] Multivitamins, Thera [Multivitamin 1 tab PO DAILY 03/27/18 04/29/20 History (formulary)] Vitamin B Complex 1 cap PO DAILY 03/27/18 04/29/20 History Aspirin 81 mg PO DAILY #30 chewable 03/30/18 04/29/20 Rx hydroCHLOROthiazide 25 mg PO DAILY #20 tablet 03/31/18 04/29/20 Rx Albuterol Inhaler [Ventolin Hfa 2 puff INHALATION RT-Q6H PRN 04/29/20 04/29/20 History Inhaler] Budesonide-Formot 160-4.5 Mcg 2 puff INHALATION RT-BID 04/29/20 04/29/20 History [Symbicort 160-4.5 Mcg Inhaler] Losartan Potassium 50 mg PO DAILY 04/29/20 04/29/20 History Magnesium 200 mg PO DAILY 04/29/20 04/29/20 History Potassium Gluconate 99 mg PO DAILY 04/29/20 04/29/20 History Tiotropium [place] [Spiriva] 1 cap INHALATION RT-DAILY 04/29/20 04/29/20 History Allergies Allergy/AdvReac Type Severity Reaction Status Date / Time No Known Allergies Allergy Verified 04/29/20 08:30 Physical Exam Vitals: Vital Signs Temp Pulse Pulse Resp BP BP Pulse Ox 04/29/20 11:57 88 04/29/20 11:38 84 04/29/20 08:00 98.2 F 100 16 121/75 93 L 04/29/20 02:32 18 04/29/20 02:00 97.9 F 94 93 18 124/89 141/94 92 L 04/29/20 00:56 98 18 145/86 95 04/29/20 00:24 79 04/29/20 00:09 84 04/28/20 23:05 97.8 F 107 H 24 154/102 79 L Intake and Output 04/28/20 04/29/20 04/29/20 22:59 06:59 14:59 Intake Total 220 Balance 220 Intake: Oral 220 Other: Voiding Method Toilet # Voids 1 1 Weight 81.647 kg PHYSICAL EXAMINATION: GENERAL: The patient is alert and oriented x3, not in any acute distress. Well developed, well nourished. HEENT: Pupils are round and equally reacting to light. EOMI. No scleral icterus. No conjunctival pallor. Normocephalic, atraumatic. No pharyngeal erythema. No thyromegaly. CARDIOVASCULAR: S1 and S2 present. No murmurs, rubs, or gallops. PULMONARY: Diminished and significant expiratory wheezing on exam ABDOMEN: Soft, nontender, nondistended, normoactive bowel sounds. No palpable organomegaly. MUSCULOSKELETAL: No joint swelling or deformity. EXTREMITIES: No cyanosis, clubbing, or pedal edema. NEUROLOGICAL: Gross neurological examination did not reveal any focal deficits. SKIN: No rashes. Results CBC & Chem 7: 04/28/20 23:29 04/28/20 23:29 Labs: Abnormal Lab Results - Last 24 Hours (Table) 04/28/20 04/28/20 04/29/20 Range/Units 23:29 23:29 11:48 MCV 102.2 H (80.0-100.0) fL Chloride 96 L (98-107) mmol/L Carbon Dioxide 31 H (22-30) mmol/L BUN 29 H (7-17) mg/dL Glucose 128 H (74-99) mg/dL POC Glucose (mg/dL) 153 H (75-99) mg/dL AST 40 H (14-36) U/L Thrombosis Risk Factor Assmnt - Choose All That Apply Any of the Below Risk Factors Present?: Yes Each Factor Represents 1 point: Medical pt on bed rest Other Risk Factors: Yes Each Risk Factor Represents 2 Points: Age 61-74 years Thrombosis Risk Factor Assessment Total Risk Factor Score: 3 Thrombosis Risk Factor Assessment Level: Moderate Risk Assessment and Plan Plan: -Acute hypoxic respiratory failure secondary to COPD exacerbation patient will be continued on systemic steroids dose of systems status will be cut down to 40 IV twice a day continue with inhalational treatments -Continued nicotine use: Counseling was provided -Hypertension will continue with losartan holding of diuretics -Gastroesophageal reflux disease -DVT prophylaxis with Lovenox
[2020-04-29 16:50] LABS: Glucose,Whole Blood 145 mg/dL (75-99)
[2020-04-29] MEDS: INSULIN ASPART (NovoLOG) 100 UNIT/ML VIAL SQ SCH ×2 (16:59→21:18)
[2020-04-29] MEDS ORDERED: SYMBICORT 160-4.5 MCG INHALER INHALATION SCH (20:00)
[2020-04-29 21:05] LABS: Glucose,Whole Blood 108 mg/dL (75-99)
[2020-04-29] MEDS: SYMBICORT 160-4.5 MCG INHALER INHALATION SCH (21:30)
[2020-04-29] MEDS: methylPREDNISolone SOD SUCCI 40 MG/ML 1 ML VIAL IV SCH (21:32)
[2020-04-30 07:06] LABS: Glucose,Whole Blood 117 mg/dL (75-99)
[2020-04-30] MEDS: IPRATROPIUM-ALBUTEROL 3 ML NEB INHALATION SCH ×4 (07:22→21:14)
[2020-04-30] MEDS: SYMBICORT 160-4.5 MCG INHALER INHALATION SCH ×2 (07:24→21:13)
[2020-04-30] MEDS: INSULIN ASPART (NovoLOG) 100 UNIT/ML VIAL SQ SCH ×4 (08:24→20:24)
[2020-04-30] MEDS: NICOTINE 14MG/24HR PATCH TRANSDERM SCH (08:25)
[2020-04-30] MEDS: methylPREDNISolone SOD SUCCI 40 MG/ML 1 ML VIAL IV SCH (08:30)
[2020-04-30] MEDS: LOSARTAN 50 MG TAB PO SCH (08:30)
[2020-04-30] MEDS: ENOXAPARIN 40 MG/0.4 ML SYRINGE SQ SCH (08:30)
[2020-04-30] MEDS: ASPIRIN 81 MG PO SCH (08:30)
[2020-04-30] MEDS: MAGNESIUM OXIDE 400 MG TAB PO SCH (08:30)
[2020-04-30 11:31] LABS: Glucose,Whole Blood 151 mg/dL (75-99)
--- NOTE | 2020-04-30 13:43 | P.PN ---
Subjective Progress Note Date: 04/30/20 Principal diagnosis: Acute exacerbation of chronic obstructive pulmonary disease This is a very pleasant 59-year-old female patient who follows with Dr. Tillman/Macario Julian NP as her primary care provider. She has a history of obesity, anxiety, gastroesophageal reflux disease, retention, chronic and ongoing tobacco dependence. She does have significant chronic obstructive pulmonary disease with an FEV1 value of 1.28 L at 59% of predicted. She follows with Dr. Clark in our office. She is on the Court, Spiriva and albuterol. She presented here to the emergency room yesterday with complaints of increasing shortness of breath dry nonproductive cough. Dyspnea on minimal exertion. Chest x-ray reveals no acute cardiopulmonary disease. He is seen today in consultation on the regular medical floor. Awake and alert in no acute distress. She is still somewhat dyspneic with minimal conversation, minimal activity. White count 9.4. Hemoglobin 14.6. Sodium 138. Potassium 4.3. Creatinine 0.57. Troponin negative. ProBNP 145. Arriaga virus not detected. He's been initiated and DuoNeb inhalations, IV Solu-Medrol, Lovenox. The patient is seen today 04/30/2020 in follow-up on the regular medical floor. She is awake and alert in no acute distress. Resting quite comfortably in bed. She is maintaining good O2 saturations in the 90s on 3 L/m per nasal cannula. Blood glucose 151. Continued on DuoNeb inhalations, Symbicort, IV Solu-Medrol. NicoDerm patch in place. She is anxious to go home. Objective - Vital Signs Vital signs: Vital Signs Temp 98.4 F 04/30/20 08:00 Pulse 94 04/30/20 12:16 Resp 17 04/30/20 08:00 BP 143/74 04/30/20 08:00 Pulse Ox 94 L 04/30/20 08:00 Intake & Output 04/29/20 04/30/20 04/30/20 18:59 06:59 18:59 Intake Total 420 Balance 420 Intake: Oral 420 Other: Voiding Method Toilet Toilet Toilet # Voids 3 - Exam GENERAL EXAM: Alert, pleasant 59-year-old female patient, on 3 L/m per nasal cannula, comfortable in no apparent distress. HEAD: Normocephalic. EYES: Normal reaction of pupils, equal size. NOSE: Clear with pink turbinates. THROAT: No erythema or exudates. NECK: No masses, no JVD. CHEST: No chest wall deformity. LUNGS: Equal air entry with bilateral end expiratory wheeze, diminished. CVS: S1 and S2 normal with no audible murmur, regular rhythm. ABDOMEN: No hepatosplenomegaly, normal bowel sounds, no guarding or rigidity. SPINE: No scoliosis or deformity SKIN: No rashes CENTRAL NERVOUS SYSTEM: No focal deficits, tone is normal in all 4 extremities. EXTREMITIES: There is no peripheral edema. No clubbing, no cyanosis. Peripheral pulses are intact. - Labs CBC & Chem 7: 04/28/20 23:29 04/28/20 23:29 Labs: Abnormal Lab Results - Last 24 Hours (Table) 04/29/20 04/29/20 04/30/20 Range/Units 16:43 21:04 07:04 POC Glucose (mg/dL) 145 H 108 H 117 H (75-99) mg/dL 04/30/20 Range/Units 11:29 POC Glucose (mg/dL) 151 H (75-99) mg/dL Assessment and Plan Assessment: 1 Acute exacerbation of chronic obstructive pulmonary disease. FEV1 value 59% of predicted 2 Chronic and ongoing tobacco dependence 3 Acute hypoxic respiratory failure secondary to above 4 Mild interstitial lung disease 5 Obesity 6 Hypertension 7 Gastroesophageal reflux disease Plan: The patient was seen and evaluated by Dr. Spicer Cleared for discharge from the pulmonary standpoint Continue Symbicort, Spiriva, albuterol Complete prednisone taper starting at 40 mg for 4 days Evaluate for probable home oxygen Educated regarding the importance of complete smoking cessation Follow up in our office in 1-2 weeks' I, the cosigning physician, performed a history & physical examination of the patient. Lungs sounds with bilateral end expiratory wheeze. Maintaining good O2 saturations in the 90s on 3 L/m per nasal cannula. I discussed the assessment and plan of care with my nurse practitioner, Pili Arreguin. I attest to the above note as dictated by her.
--- NOTE | 2020-04-30 13:56 | P.PN ---
Subjective Progress Note Date: 04/30/20 Patient with known history of COPD continues to smoke came in with complaints of nonproductive cough. Denied any fever chills chest x-ray did not show any pneumonia. covid 19 is negative. Patient had a FEV1 of 59% predicted in the past. Doesn't usually use oxygen at home. 04/30/2019 Patient seen on follow-up, remains on 2 L nasal cannula, reports feeling better today although she still is having wheezing. She is not oxygen dependent at baseline, Is somewhat anxious to go home. Continues IV Solu-Medrol, nebulous bronchodilators and inhaled corticosteroids. REVIEW OF SYSTEMS: CONSTITUTIONAL: No fever, no malaise, no fatigue. HEENT: No recent visual problems or hearing problems. Denied any sore throat. CARDIOVASCULAR: No chest pain, orthopnea, PND, no palpitations, no syncope. PULMONARY: no hemoptysis. GASTROINTESTINAL: No diarrhea, no nausea, no vomiting, no abdominal pain. Objective - Vital Signs Vital signs: Vital Signs Temp 98.4 F 04/30/20 08:00 Pulse 94 04/30/20 12:16 Resp 17 04/30/20 08:00 BP 143/74 04/30/20 08:00 Pulse Ox 94 L 04/30/20 08:00 Intake & Output 04/29/20 04/30/20 04/30/20 18:59 06:59 18:59 Intake Total 420 Balance 420 Intake: Oral 420 Other: Voiding Method Toilet Toilet Toilet # Voids 3 - Exam GENERAL: The patient is alert and oriented x3, not in any acute distress. Well developed, well nourished. HEENT: Pupils are round and equally reacting to light. EOMI. No scleral icterus. No conjunctival pallor. Normocephalic, atraumatic. No pharyngeal erythema. No thyromegaly. CARDIOVASCULAR: S1 and S2 present. No murmurs, rubs, or gallops. PULMONARY: Diminished air entry, expiratory wheezing bilaterally ABDOMEN: Soft, nontender, nondistended, normoactive bowel sounds. No palpable organomegaly. MUSCULOSKELETAL: No joint swelling or deformity. EXTREMITIES: No cyanosis, clubbing, or pedal edema. NEUROLOGICAL: Gross neurological examination did not reveal any focal deficits. SKIN: No rashes. - Labs CBC & Chem 7: 04/28/20 23:29 04/28/20 23:29 Labs: Abnormal Lab Results - Last 24 Hours (Table) 04/29/20 04/29/20 04/30/20 Range/Units 16:43 21:04 07:04 POC Glucose (mg/dL) 145 H 108 H 117 H (75-99) mg/dL 04/30/20 Range/Units 11:29 POC Glucose (mg/dL) 151 H (75-99) mg/dL Assessment and Plan Assessment: Plan: -Acute hypoxic respiratory failure secondary to COPD exacerbation patient will be continued on systemic steroids IV Solu-Medrol 40 every 12 hours, nebulas bronchodilators, inhaled corticosteroids. Titrate down FiO2 as tolerated, is not oxygen dependent at baseline. -Continued nicotine use: Counseling was provided -Hypertension will continue with losartan holding of diuretics -Gastroesophageal reflux disease -DVT prophylaxis with Lovenox
[2020-04-30 16:33] LABS: Glucose,Whole Blood 126 mg/dL (75-99)
[2020-04-30 20:24] LABS: Glucose,Whole Blood 134 mg/dL (75-99)
[2020-05-01 07:20] LABS: Glucose,Whole Blood 116 mg/dL (75-99)
[2020-05-01] MEDS: INSULIN ASPART (NovoLOG) 100 UNIT/ML VIAL SQ SCH ×2 (07:26→12:04)
[2020-05-01] MEDS: SYMBICORT 160-4.5 MCG INHALER INHALATION SCH ×2 (07:36→19:39)
[2020-05-01] MEDS: IPRATROPIUM-ALBUTEROL 3 ML NEB INHALATION SCH ×4 (07:57→19:39)
[2020-05-01] MEDS ORDERED: ACETAMINOPHEN TAB 325 MG TAB PO PRN (08:33)
[2020-05-01] MEDS: predniSONE 20 MG TAB PO SCH (08:36)
[2020-05-01] MEDS: NICOTINE 14MG/24HR PATCH TRANSDERM SCH (08:36)
[2020-05-01] MEDS: LOSARTAN 50 MG TAB PO SCH (08:36)
[2020-05-01] MEDS: ASPIRIN 81 MG PO SCH (08:36)
[2020-05-01] MEDS: MAGNESIUM OXIDE 400 MG TAB PO SCH (08:36)
[2020-05-01] MEDS: ENOXAPARIN 40 MG/0.4 ML SYRINGE SQ SCH (08:36)
--- NOTE | 2020-05-01 13:05 | P.PN ---
Subjective Progress Note Date: 05/01/20 This is a very pleasant 59-year-old female patient who follows with Dr. Tillman/Macario Julian NP as her primary care provider. She has a history of obesity, anxiety, gastroesophageal reflux disease, retention, chronic and ongoing tobacco dependence. She does have significant chronic obstructive pulmonary disease with an FEV1 value of 1.28 L at 59% of predicted. She follows with Dr. Clark in our office. She is on the Court, Spiriva and albuterol. She presented here to the emergency room yesterday with complaints of increasing shortness of breath dry nonproductive cough. Dyspnea on minimal exertion. Chest x-ray reveals no acute cardiopulmonary disease. He is seen today in consultation on the regular medical floor. Awake and alert in no acute distress. She is still somewhat dyspneic with minimal conversation, minimal activity. White count 9.4. Hemoglobin 14.6. Sodium 138. Potassium 4.3. Creatinine 0.57. Troponin negative. ProBNP 145. Arriaga virus not detected. He's been initiated and DuoNeb inhalations, IV Solu-Medrol, Lovenox. The patient is seen today 04/30/2020 in follow-up on the regular medical floor. She is awake and alert in no acute distress. Resting quite comfortably in bed. She is maintaining good O2 saturations in the 90s on 3 L/m per nasal cannula. Blood glucose 151. Continued on DuoNeb inhalations, Symbicort, IV Solu-Medrol. NicoDerm patch in place. She is anxious to go home. On today's evaluation of 2020 the patient is feeling better. She is less short of breath. Everyone is in order a 59% of predicted and the patient was hospitalized for an acute COPD exacerbation. She is improving. She is less short of breath. Minimal congested cough. She has a cardiac murmur and the patient's previous echocardiogram showed a preserved LV function with borderline LVH and ejection fraction of 55-60% with mild aortic sclerosis and trace regurgitation and mild stenosis. No significant mitral regurgitation. She is doing well. No chest pain. No home oxygen. She smokes 4 to 5 cigg every day. She has been maintained on a combination of Symbicort and Objective - Vital Signs Vital signs: Vital Signs Temp 97.8 F 05/01/20 08:00 Pulse 90 05/01/20 11:06 Resp 18 05/01/20 11:06 BP 150/97 05/01/20 08:00 Pulse Ox 90 L 05/01/20 08:00 Intake & Output 04/30/20 05/01/20 05/01/20 18:59 06:59 18:59 Other: Voiding Method Toilet Toilet Toilet # Voids 3 - Exam GENERAL EXAM: Alert, pleasant 59-year-old female patient, on 3 L/m per nasal cannula, comfortable in no apparent distress. HEAD: Normocephalic. EYES: Normal reaction of pupils, equal size. NOSE: Clear with pink turbinates. THROAT: No erythema or exudates. NECK: No masses, no JVD. CHEST: No chest wall deformity. LUNGS: Equal air entry with bilateral end expiratory wheeze, diminished. CVS: S1 and S2 normal with no audible murmur, regular rhythm. ABDOMEN: No hepatosplenomegaly, normal bowel sounds, no guarding or rigidity. SPINE: No scoliosis or deformity SKIN: No rashes CENTRAL NERVOUS SYSTEM: No focal deficits, tone is normal in all 4 extremities. EXTREMITIES: There is no peripheral edema. No clubbing, no cyanosis. Peripheral pulses are intact. - Labs CBC & Chem 7: 04/28/20 23:29 04/28/20 23:29 Labs: Abnormal Lab Results - Last 24 Hours (Table) 04/30/20 04/30/20 05/01/20 Range/Units 16:32 20:22 07:19 POC Glucose (mg/dL) 126 H 134 H 116 H (75-99) mg/dL Assessment and Plan Plan: 1 Acute exacerbation of chronic obstructive pulmonary disease. FEV1 value 59% of predicted, improving 2 Chronic and ongoing tobacco dependence 3 Acute hypoxic respiratory failure secondary to above, currently on 3 L of oxygen by nasal cannula 4 Mild interstitial lung disease and nonspecific, doubt interstitial lung disease 5 Obesity, body mass index is 35.2 6 Hypertension 7 Gastroesophageal reflux disease Plan: Continue Symbicort, Spiriva, albuterol and his outpatient regimen Complete prednisone taper starting at 40 mg for 4 days Evaluate for probable home oxygen and possible discharge today. Educated regarding the importance of complete smoking cessation Follow up in our office in 1-2 weeks' EDWARD Clark
[2020-05-01] MEDS ORDERED: ALPRAZolam 0.25 MG TAB PO PRN (18:15)
--- NOTE | 2020-05-01 20:18 | PN ---
PROGRESS NOTE DATE OF SERVICE: 05/01/2020 This 59-year-old woman who was admitted with acute hypoxic respiratory failure and CHF and COPD, acute exacerbation, is being closely monitored at this time. The patient also had history of ongoing nicotine dependence. The patient also had mild acute hypoxic respiratory failure. Blood sugar was elevated at 116. Past medical history reviewed. REVIEW OF SYSTEMS: CARDIOVASCULAR SYSTEM: No angina, palpitations. RESPIRATORY SYSTEM: As mentioned earlier. GI: As mentioned earlier. : No dysuria or retention. NERVOUS SYSTEM: No numbness, weakness. CURRENT MEDICATIONS: Reviewed. They include Tylenol, DuoNeb, aspirin, Symbicort, Lovenox, Cozaar, magnesium oxide, B12, prednisone. PHYSICAL EXAMINATION: Patient alert and oriented x3. Pulse 94, blood pressure 116/74, respiration 18, temperature 97.8, pulse ox 94% on room air. HEENT: Conjunctivae normal. NECK: No jugular venous distention. CARDIOVASCULAR SYSTEM: S1, S2 muffled. RESPIRATORY SYSTEM: Breath sounds diminished at the bases. Bilateral scattered rhonchi and crackles. ABDOMEN: Soft, non-tender. LEGS: No edema. No swelling. NERVOUS SYSTEM: No focal deficit. LABS: MCV 102.2. Glucose 128. ASSESSMENT: 1. Chronic obstructive pulmonary disease, acute exacerbation, with acute purulent tracheobronchitis and acute hypoxic respiratory failure. 2. Hypertension. 3. Acute hypoxic hypercarbic respiratory failure. 4. Increased mean corpuscular volume. 5. History of tonsillectomy. 6. History of tubal ligation. 7. History of nicotine dependence. 8. History of ETOH. RECOMMENDATIONS AND DISCUSSION: In this 59-year-old woman who presented with multiple complex medical issues, we will monitor the patient closely, continue the current medications, continue with symptomatic treatment. Otherwise, we will continue with steroids, bronchodilators. Guarded prognosis because of multiple complex medical issues. Further recommendations to follow. I would also check a serum procalcitonin level. MMODL / IJN: [id number] /
[2020-05-02] MEDS ORDERED: PANTOPRAZOLE 40 MG TABLET PO SCH (07:30)
[2020-05-02 07:39] LABS: Glucose,Whole Blood 107 mg/dL (75-99)
[2020-05-02] MEDS: MAGNESIUM OXIDE 400 MG TAB PO SCH (07:46)
[2020-05-02] MEDS: LOSARTAN 50 MG TAB PO SCH (07:46)
[2020-05-02] MEDS: predniSONE 20 MG TAB PO SCH (07:46)
[2020-05-02] MEDS: ASPIRIN 81 MG PO SCH (07:46)
[2020-05-02] MEDS: ENOXAPARIN 40 MG/0.4 ML SYRINGE SQ SCH (07:46)
[2020-05-02] MEDS ORDERED: hydroCHLOROthiazide 25 MG TAB PO SCH (09:00)
[2020-05-02] MEDS ORDERED: ASCORBIC ACID 500 MG TAB PO SCH (09:00)
[2020-05-02] MEDS ORDERED: MULTIVITAMINS, THERA 1 EACH TAB PO SCH (09:00)
[2020-05-02] MEDS ORDERED: NON FORMULARY DRUG (Vitamin B Complex [Vitamin B Complex] 1 EACH Capsule) PO SCH (09:00)
[2020-05-02] MEDS ORDERED: CYANOCOBALAMIN 500 MCG TAB PO SCH (09:00)
[2020-05-02] MEDS: IPRATROPIUM-ALBUTEROL 3 ML NEB INHALATION SCH ×3 (09:02→15:18)
[2020-05-02] MEDS: SYMBICORT 160-4.5 MCG INHALER INHALATION SCH (09:03)
[2020-05-02 09:04] VITALS: RESP 18
[2020-05-02 09:12] LABS: HCT 39.9 % (37.2-46.3); HGB 12.2 g/dL (12.0-15.0); MCH 33.1 pg (27.0-32.0); MCHC 30.6 g/dL (32.0-37.0); MCV 108.1 fL (80.0-97.0); Mean Platelet Volume 11.2 fL (9.5-12.2); Platelet Count 174 X 10*3/uL (140-440); RBC 3.69 X 10*6/uL (4.10-5.20); WBC 8.81 X 10*3/uL (4.50-10.00)
[2020-05-02 09:46] LABS: African American GFR (CKD) 121.1 (60.0-200.0); Calcium 8.3 mg/dL (8.7-10.3); Non-African American GFR(CKD) 104.5 (60.0-200.0)
[2020-05-02 09:50] LABS: Basophils # (A) 0.03 X 10*3/uL (0.00-0.10); Basophils % (A) 0.3 %; Eosinophils # (A) 0.07 X 10*3/uL (0.04-0.35); Eosinophils % (A) 0.8 %; Lymphocytes # (A) 1.84 X 10*3/uL (0.90-5.00); Lymphocytes % (A) 20.9 %; Monocytes # (A) 0.85 X 10*3/uL (0.20-1.00); Monocytes % (A) 9.6 %; Neutrophils # (A) 5.99 X 10*3/uL (1.80-7.70); Neutrophils % (A) 68.1 %
--- NOTE | 2020-05-02 10:04 | P.PN ---
Subjective Progress Note Date: 05/02/20 This is a very pleasant 59-year-old female patient who follows with Dr. Tillman/Macario Julian NP as her primary care provider. She has a history of obesity, anxiety, gastroesophageal reflux disease, retention, chronic and ongoing tobacco dependence. She does have significant chronic obstructive pulmonary disease with an FEV1 value of 1.28 L at 59% of predicted. She follows with Dr. Clark in our office. She is on the Court, Spiriva and albuterol. She presented here to the emergency room yesterday with complaints of increasing shortness of breath dry nonproductive cough. Dyspnea on minimal exertion. Chest x-ray reveals no acute cardiopulmonary disease. He is seen today in consultation on the regular medical floor. Awake and alert in no acute distress. She is still somewhat dyspneic with minimal conversation, minimal activity. White count 9.4. Hemoglobin 14.6. Sodium 138. Potassium 4.3. Creatinine 0.57. Troponin negative. ProBNP 145. Arriaga virus not detected. He's been initiated and DuoNeb inhalations, IV Solu-Medrol, Lovenox. The patient is seen today 04/30/2020 in follow-up on the regular medical floor. She is awake and alert in no acute distress. Resting quite comfortably in bed. She is maintaining good O2 saturations in the 90s on 3 L/m per nasal cannula. Blood glucose 151. Continued on DuoNeb inhalations, Symbicort, IV Solu-Medrol. NicoDerm patch in place. She is anxious to go home. On today's evaluation of 05/01 2020 the patient is feeling better. She is less short of breath. Everyone is in order a 59% of predicted and the patient was hospitalized for an acute COPD exacerbation. She is improving. She is less short of breath. Minimal congested cough. She has a cardiac murmur and the patient's previous echocardiogram showed a preserved LV function with borderline LVH and ejection fraction of 55-60% with mild aortic sclerosis and trace regurgi tation and mild stenosis. No significant mitral regurgitation. She is doing well. No chest pain. No home oxygen. She smokes 4 to 5 cigg every day. She has been maintained on a combination of Symbicort and Spiriva On 05/02/2020, the patient continues to improve. She seems to be less short of breath. As mentioned earlier, the patient was hospitalized for an acute COPD exacerbation. She has an FEV1 of 59% of predicted at baseline and the patient has been maintained on Symbicort and Spiriva on outpatient basis. She is chronic smoker. No chest pain. No chest tightness. She is currently on oxygen at 2 L. We are going to evaluate her need for home oxygen and we are going to evaluate her pulse ox on room air at rest and with activity. He just chronic smoker admission. No hemoptysis. No pleurisy. She has mild aortic sclerosis and a chronic cardiac murmur. Her previous ejection fraction was in order of 55-60%. No leg edema. Altered mentation. No other significant events over the past 24 hours. Objective - Vital Signs Vital signs: Vital Signs Temp 99.2 F 05/02/20 07:27 Pulse 101 H 05/02/20 09:13 Resp 18 05/02/20 09:13 BP 153/78 05/02/20 07:27 Pulse Ox 95 05/02/20 09:03 Intake & Output 05/01/20 05/02/20 05/02/20 18:59 06:59 18:59 Intake Total 500 300 Output Total 2 Balance 500 298 Intake: Oral 500 300 Output: Urine 2 Other: Voiding Method Toilet Toilet # Voids 1 - Exam GENERAL EXAM: Alert, pleasant 59-year-old female patient, on 2L/m per nasal cannula, comfortable in no apparent distress. HEAD: Normocephalic. EYES: Normal reaction of pupils, equal size. NOSE: Clear with pink turbinates. THROAT: No erythema or exudates. NECK: No masses, no JVD. CHEST: No chest wall deformity. LUNGS: Equal air entry with bilateral end expiratory wheeze, diminished. CVS: S1 and S2 normal with no audible murmur, regular rhythm. ABDOMEN: No hepatosplenomegaly, normal bowel sounds, no guarding or rigidity. SPINE: No scoliosis or deformity SKIN: No rashes CENTRAL NERVOUS SYSTEM: No focal deficits, tone is normal in all 4 extremities. EXTREMITIES: There is no peripheral edema. No clubbing, no cyanosis. Peripheral pulses are intact. - Labs CBC & Chem 7: 05/02/20 06:01 05/02/20 06:01 Labs: Abnormal Lab Results - Last 24 Hours (Table) 0305/02/20 05/02/20 Range/Units 06:01 06:01 07:38 RBC 3.69 L (4.10-5.20) X 10*6/uL MCV 108.1 H (80.0-97.0) fL MCH 33.1 H (27.0-32.0) pg MCHC 30.6 L (32.0-37.0) g/dL RDW 15.0 H (11.5-14.5) % Carbon Dioxide 36.0 H (21.6-31.8) mmol/L Creatinine 0.5 L (0.6-1.5) mg/dL BUN/Creatinine Ratio 30.00 H (12.00-20.00) Ratio POC Glucose (mg/dL) 107 H (75-99) mg/dL Calcium 8.3 L (8.7-10.3) mg/dL Assessment and Plan Plan: 1 Acute exacerbation of chronic obstructive pulmonary disease. FEV1 value 59% of predicted, improving, the patient feels better compared to yesterday. 2 Chronic and ongoing tobacco dependence 3 Acute hypoxic respiratory failure secondary to above, currently on 3 L of oxygen by nasal cannula 4 Mild interstitial lung disease and nonspecific, doubt interstitial lung disease 5 Obesity, body mass index is 35.2 6 Hypertension 7 Gastroesophageal reflux disease Plan: Continue Symbicort, Spiriva, albuterol and his outpatient regimen Complete prednisone taper starting at 40 mg for 4 days Evaluate for probable home oxygen and possible discharge today. Educated regarding the importance of complete smoking cessation Possible discharge home today after evaluating her oxygen needs. Arrange home O2 needed. Follow up in our office in 1-2 weeks' EDWARD Clark
[2020-05-02] MEDS: NICOTINE 14MG/24HR PATCH TRANSDERM SCH (10:58)
[2020-05-02 11:48] LABS: Glucose,Whole Blood 168 mg/dL (75-99)
[2020-05-02 13:44] VITALS: BP 120/68; TEMP 100
[2020-05-02 15:20] VITALS: PULSE 98
--- NOTE | 2020-05-02 22:21 | DS ---
DISCHARGE SUMMARY DATE OF SERVICE: 05/02/2020 FINAL DIAGNOSES: 1. Chronic obstructive pulmonary disease, acute exacerbation, with acute purulent tracheobronchitis and acute hypoxic respiratory failure. 2. Chronic hypoxic respiratory failure. 3. Hypertension. 4. Acute hypoxic hypercarbic respiratory failure. 5. Increased mean corpuscular volume. 6. History of tonsillectomy. 7. History of tubal ligation. 8. History of nicotine dependence. 9. History of ETOH. DISCHARGE DISPOSITION: The patient will be discharged in stable condition with guarded prognosis. HISTORY OF PRESENT ILLNESS: This 59-year-old woman with a past medical history of multiple medical problems was admitted with acute hypoxic respiratory failure as well as COPD, acute exacerbation. The patient was treated with bronchodilators and steroids. The patient improved significantly. Room-air pulse ox was noted and home oxygen was also suggested. On exam, vitals are stable. CARDIOVASCULAR SYSTEM: S1, S2 muffled. ABDOMEN: Soft. NERVOUS SYSTEM: No focal deficit. The patient was seen by Dr. Allen, who cleared the patient for discharge. DISCHARGE ADVICE AND MEDICATIONS: 1. Discharge diet is cardiac. 2. Activity limited until followup. 3. Follow up with Dr. Kevon Tillman in 2-3 days. 4. Follow up with Dr. Clark as recommended. 5. Calcium, magnesium and zinc p.o. daily. 6. Losartan 50 mg daily. 7. Magnesium 200 mg p.o. daily. 8. Multivitamins 1 p.o. daily. 9. Spiriva 1 puff daily. 10.Symbicort 160/4.5 two puffs b.i.d. 11.Vitamin B complex 1 p.o. daily. 12.Vitamin B12, 1000 mcg p.o. daily. 13.Vitamin C 1000 mg daily. 14.Aspirin 81 mg p.o. daily. 15.DuoNeb q.i.d. and p.r.n. 16.Hydrochlorothiazide 25 mg p.o. daily. 17.Prednisone taper: 40 mg daily for 3 days; 30 mg daily for 3 days; 20 mg daily for 3 days; 10 mg daily for 3 days. 18.Tylenol p.r.n. Once again, the patient will be discharged in stable condition with guarded prognosis. MMODL / IJN: [id number] /
== END 2020-05-02 16:28 | disposition home or self-care (01) | DRG 190 ==
LOC: EC 22:50 → 4SSUR 04-29 01:30
PROVIDERS: ADMIT Hospitalist; ATTEND Hospitalist
DX: J44.1 Chronic obstructive pulmonary disease with (acute) exacerbation (principal); J96.21 Acute and chronic respiratory failure with hypoxia; J96.22 Acute and chronic respiratory failure with hypercapnia; J84.9 Interstitial pulmonary disease, unspecified; J44.9 Chronic obstructive pulmonary disease, unspecified; F17.210 Nicotine dependence, cigarettes, uncomplicated; E66.9 Obesity, unspecified; Z68.35 Body mass index [BMI] 35.0-35.9, adult; Z20.822 Contact with and (suspected) exposure to COVID-19; I11.0 Hypertensive heart disease with heart failure; I50.9 Heart failure, unspecified; I70.0 Atherosclerosis of aorta; I35.1 Nonrheumatic aortic (valve) insufficiency; K21.9 Gastro-esophageal reflux disease without esophagitis; Z79.51 Long term (current) use of inhaled steroids; Z79.82 Long term (current) use of aspirin; Z79.899 Other long term (current) drug therapy; Z82.5 Family history of asthma and other chronic lower respiratory diseases; Z83.3 Family history of diabetes mellitus; Z98.51 Tubal ligation status; Z90.89 Acquired absence of other organs; Z71.6 Tobacco abuse counseling
CPT/HCPCS: 36415; 71046; 80048; 80053; 83605; 83735; 83880; 84145; 84484; 85025; 85610; 85730; 87635; 93005; 94640; 94760; 96374; 99285

== ENCOUNTER → 2023-04-21 | Outpatient (CLI) | payer OTHER ==
--- NOTE | 2023-04-21 14:46 | US ---
EXAMINATION TYPE: US venous doppler duplex LE RT DATE OF EXAM: 04/21/2023 2:28 PM COMPARISON: NONE CLINICAL INDICATION: Female, 62 years old with history of R60.9 EDEMA, UNSPECIFIED; RLE; Intermittent swelling since summer; Hx COPD SIDE PERFORMED: Right TECHNIQUE: The lower extremity deep venous system is examined utilizing real time linear array sonog fanta with graded compression, doppler sonography and color-flow sonography. VESSELS IMAGED: Common Femoral Vein Deep Femoral Vein Greater Saphenous Vein * Femoral Vein Popliteal Vein Small Saphenous Vein * Proximal Calf Veins Posterior tibial veins (* superficial vessels) Right Leg: Negative for DVT IMPRESSION: No evidence for DVT within the right lower extremity.
== END | disposition home or self-care (01) ==
LOC: RADUSWWP 14:13
PROVIDERS: ATTEND Internal Medicine
DX: J44.9 Chronic obstructive pulmonary disease, unspecified (principal); R60.0 Localized edema; M79.89 Other specified soft tissue disorders

== ENCOUNTER 2023-06-06 15:20 | Emergency (ER) | payer OTHER ==
[2023-06-06 15:35] VITALS: TEMP 97.8
[2023-06-06] MEDS: MORPHINE SULFATE 4 MG/ML SYRINGE IVP STA ×2 (15:45→16:43)
[2023-06-06 16:05] LABS: Basophils % (A) 0 %; Eosinophils # (A) 0.2 k/uL (0-0.7); Eosinophils % (A) 1 %; HCT 42.7 % (34.0-46.0); HGB 13.1 gm/dL (11.4-16.0); Hypochromasia Slight; Lymphocytes % (A) 17 %; MCH 31.7 pg (25.0-35.0); MCHC 30.7 g/dL (31.0-37.0); MCV 103.1 fL (80.0-100.0); Macrocytosis Slight; Monocytes # (A) 0.6 k/uL (0-1.0); Monocytes % (A) 5 %; Neutrophils # (A) 8.6 k/uL (1.3-7.7); Neutrophils % (A) 74 %; Platelet Count 188 k/uL (150-450); RBC 4.14 m/uL (3.80-5.40); RDW 14.2 % (11.5-15.5); WBC 11.8 k/uL (3.8-10.6)
[2023-06-06 16:18] LABS: ALT 24 U/L (4-34); AST 29 U/L (14-36); African American GFR (CKD) >90 (>60 ml/min/1.73 sqM); Albumin 4.8 g/dL (3.5-5.0); Alkaline Phosphatase 108 U/L (38-126); Anion Gap 8 mmol/L; Blood Urea Nitrogen 20 mg/dL (7-17); Calcium 9.9 mg/dL (8.4-10.2); Carbon Dioxide 36 mmol/L (22-30); Chloride 95 mmol/L (98-107); Glucose 179 mg/dL (74-99); Non-African American GFR(CKD) >90 (>60 ml/min/1.73 sqM); Potassium 3.6 mmol/L (3.5-5.1); Sodium 139 mmol/L (137-145); Total Bilirubin 0.5 mg/dL (0.2-1.3); Total Protein 7.9 g/dL (6.3-8.2)
[2023-06-06 16:22] LABS: INR 0.9 (<1.2); Prothrombin Time 10.3 sec (10.0-12.5)
[2023-06-06 16:25] LABS: Partial Thromboplastin Time 20.9 sec (22.0-30.0)
--- NOTE | 2023-06-06 16:26 | XR ---
EXAMINATION TYPE: XR chest 2V DATE OF EXAM: 06/06/2023 COMPARISON: 04/28/2020 HISTORY: Shortness of breath TECHNIQUE: Frontal and lateral views of the chest are obtained. FINDINGS: Scattered senescent parenchymal changes noted. Hyperinflation compatible with COPD. No evidence for infiltrate. No evidence for atelectasis. Heart size is stable. Mediastinal structures are stable and grossly unremarkable. No evidence for hilar prominence. Degenerative changes dorsal spine. IMPRESSION: 1. No evidence for acute pulmonary disease.
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
[2023-06-06] MEDS: LIDOCAINE 4% PATCH TOPICAL ONE (17:46)
[2023-06-06] MEDS: HYDROmorphone 1 MG/ML 1 ML SYRINGE IVP STA (17:52)
[2023-06-06 18:39] VITALS: BP 143/88; PULSE 98; RESP 18
== END 2023-06-06 17:55 | disposition home or self-care (01) ==
LOC: EC 15:20
DX: R07.89 Other chest pain (principal); R10.10 Upper abdominal pain, unspecified; R00.0 Tachycardia, unspecified; J44.9 Chronic obstructive pulmonary disease, unspecified; F17.200 Nicotine dependence, unspecified, uncomplicated; Z79.51 Long term (current) use of inhaled steroids; Z79.899 Other long term (current) drug therapy; V43.52XA Car driver injured in collision with other type car in traffic accident, initial encounter; Y92.410 Unspecified street and highway as the place of occurrence of the external cause
CPT/HCPCS: 36415; 93005; 80053; 84484; 85025; 85610; 85730; 71046; 74160; 99285; 96374; 96375; 96376; J2270; J1170; Q9967